=== PATIENT | female | born 1950 | race Caucasian/White ===

== ENCOUNTER → 2016-04-28 | Outpatient (CLI) | payer OTHER ==
[~2016-04-28] MED LIST: ACTOS30 MG PO; ALPRAZOLAM0.5 M3 PO; AMBIEN10 MG PO; ANTIBIOTIC O500 U/GM TP; ATENOLOL25 MG PO; BACTRIM DS 8001 TA1 PO; BENTYL10 MG PO; BIAXIN500 MG PO; BISOPROLOL FUMA1 TAB PO; BISOPROLOL PO; CALCIUM 500 + D1 TA1 PO; CALCIUM/VITAMIN1 TA8 PO; CITALOPRAM HYDR20 MG PO; CITALOPRAM20 MG PO; CLINDAMYCIN HC300 MG PO; CYCLOBENZAPRINE10 MG PO; DIFLUCAN100 MG PO; DIFLUCAN150 MG PO; DITROPAN XL5 MG PO; FENOFIBRATE MI134 MG PO; FENOFIBRATE134 MG PO; FLUCONAZOLE200 MG PO; GLIPIZIDE ER10 MG PO; GLIPIZIDE XL5 MG PO; GLIPIZIDE10 M1 PO; HYDROCODONE BIT1 T11 PO; INVOKANA100 M1 PO; IRON325 M1 PO; JANUVIA100 MG PO; KEFLEX500 MG PO; LANTUS SOLOS100 U/M1 SC; LANTUS100 U/ML SC; LEVAQUIN500 M2 PO; LEVOTHYROXINE0.05 MG PO; METOCLOPRAMIDE10 MG PO; MOTRIN800 MG PO; MYCOLOG-II 10001 CRE TP; NAPROXEN375 MG PO; NEURONTIN100 MG PO; NORCO 5-325 TA1 EACH PO; OXYBUTYNIN5 MG PO; OYSTER SHELL 51 EACH PO; PANTOPRAZOLE SO40 MG PO; PANTOPRAZOLE40 MG PO; PIOGLITAZONE HC30 MG PO; PREMARIN0.625 M1 PO; PREMARIN0.625 MG PO; PROTONIX40 MG PO; PT DOES NOT KNOW MED; Phenergan25 MG PO; SYNTHROID0.3 MG PO; SYNTHROID300 MCG PO; THEOPHYLLINE PO; THEOPHYLLINE400 MG PO; TRAMADOL HCL50 MG PO; ULTRAM50 MG PO; VENTOLIN H0.09 MG/AC INH; VICODIN 5/500 505 MG PO; VITAMIN D22000 UNIT PO; VITAMIN D2400 IU PO; VITAMIN D50000 I1 PO; VITAMIN D50000 UNIT PO; XANAX0.5 MG PO; ZIAC 2.5 MG-6.21 TAB PO; ZIAC 2.5 MG-6.25 MG PO; ZOLPIDEM TART10 MG PO; [UNRECOGNIZED DRUG - OTHER] PO
[2016-04-28 10:39] LABS: BILIRUBIN NEGATIVE (NEGATIVE); BLOOD NEGATIVE (NEGATIVE); CLARITY CLEAR (CLEAR); COLOR STRAW (YELLOW); GLUCOSE NEGATIVE (NEGATIVE); KETONE NEGATIVE (NEGATIVE); LEUKO ESTERASE NEGATIVE (NEGATIVE); NITRITE NEGATIVE (NEGATIVE); PROTEIN NEGATIVE (NEGATIVE); SPECIFIC GRAVITY <= 1.005 (1.005-1.030); UROBILINOGEN 0.2 E.U./dl (0.2-1.0)
[2016-04-28 10:47] LABS: BASO % 0.3 % (0.0-1.0); EOS # 0.1 10*3/uL (0.0-0.4); EOS % 1.7 % (1.0-4.0); HEMATOCRIT 37.3 % (37.0-47.0); HEMOGLOBIN 12.1 g/dl (12.0-16.0); LYMPH # 1.5 10*3/uL (1.3-4.4); LYMPH % 23.8 % (27.0-41.0); MEAN CELL VOLUME 92.8 fl (81.0-99.0); MEAN CORPUSCULAR HGB 30.1 pg (27.0-31.0); MEAN CORPUSCULAR HGB CONC 32.4 g/dl (33.0-37.0); MONO # 0.4 10*3/uL (0.1-1.0); MONO % 6.7 % (3.0-9.0); NEUT # 4.3 10*3/uL (2.3-7.9); NEUT % 67.2 % (47.0-73.0); PLATELET COUNT AUTOMATED 234 10*3/uL (130-400); RED BLOOD COUNT 4.02 10*6/uL (4.10-5.10); RED CELL DISTRI WIDTH 13.4 % (0-14.5); WHITE BLOOD COUNT 6.4 10*3/uL (4.8-10.8)
[2016-04-28 10:53] LABS: URINE TP/CRE RATIO 0.2 (<0.21)
[2016-04-28 11:02] LABS: ALBUMIN 3.3 gm/dl (3.1-4.5); PHOSPHOROUS 2.8 mg/dL (2.5-4.9); POTASSIUM 4.9 mmol/L (3.5-5.1)
== END | disposition home or self-care (01) ==
LOC: LAB 10:12
PROVIDERS: Internal Medicine Nephrology
DX: N18.3 Chronic kidney disease, stage 3 (moderate) (principal)

== ENCOUNTER → 2016-11-11 | Outpatient (CLI) | payer OTHER ==
[~2016-11-11] MED LIST changes: +ALPRAZOLAM1 M2 PO; +AMBIEN10 M1 PO; +FERROUS SULFAT324 M2 PO; +GABAPENTIN100 M2 PO; +HUMALOG100 U/ML SC; +LEVOTHYROXINE0.1 MG PO; +PRANDIN1 MG PO; +VITAMIN D50000 I3 PO; +[UNRECOGNIZED DRUG - OTHER] PO
== END | disposition home or self-care (01) ==
LOC: RAD 12:43
DX: M47.897 Other spondylosis, lumbosacral region (principal); M47.817 Spondylosis without myelopathy or radiculopathy, lumbosacral region; G95.89 Other specified diseases of spinal cord

== ENCOUNTER 2017-04-28 19:42 | Inpatient (IN) | payer OTHER ==
[~2017-04-28] VITALS: Ht 162.6 cm; Wt 77.6 kg
[2017-04-28 20:03] VITALS: BP 143/75
[2017-04-28 20:44] LABS: BASO % 0.3 % (0.0-1.0); EOS # 0.2 10*3/uL (0.0-0.4); EOS % 2.6 % (1.0-4.0); HEMATOCRIT 36.9 % (37.0-47.0); HEMOGLOBIN 12.4 g/dl (12.0-16.0); LYMPH # 1.3 10*3/uL (1.3-4.4); LYMPH % 20.7 % (27.0-41.0); MEAN CORPUSCULAR HGB 30.2 pg (27.0-31.0); MEAN CORPUSCULAR HGB CONC 33.6 g/dl (33.0-37.0); MEAN PLATELET VOLUME 10.4 fl (9.6-12.3); MONO # 0.3 10*3/uL (0.1-1.0); MONO % 4.4 % (3.0-9.0); NEUT # 4.4 10*3/uL (2.3-7.9); NEUT % 71.5 % (47.0-73.0); PLATELET COUNT AUTOMATED 237 10*3/uL (130-400); RED CELL DISTRI WIDTH 13.2 % (0-14.5); WHITE BLOOD COUNT 6.1 10*3/uL (4.8-10.8)
[2017-04-28 21:00] VITALS: BP 140/68
[2017-04-28 21:06] LABS: ALBUMIN 3.1 gm/dl (3.1-4.5); ALKALINE PHOSPHATASE 82 U/L (45-117); BUN 18 mg/dl (7-24); CHLORIDE 90 mmol/L (98-107); CREATININE 2.23 mg/dL (0.55-1.02); POTASSIUM 4.2 mmol/L (3.5-5.1); SGOT/AST 24 IU/L (3-35); SGPT/ALT 22 U/L (12-78); SODIUM 127 mmol/L (136-145); TOTAL PROTEIN 7.2 gm/dL (6.4-8.2)
[2017-04-28 21:10] LABS: TROPONIN I < 0.015 ng/ml (<0.045)
[2017-04-28 21:14] LABS: BILIRUBIN NEGATIVE (NEGATIVE); BLOOD 2+ (NEGATIVE); CLARITY SL CLOUDY (CLEAR); COLOR YELLOW (YELLOW); GLUCOSE 3+ (NEGATIVE); KETONE NEGATIVE (NEGATIVE); LEUKO ESTERASE 1+ (NEGATIVE); NITRITE POSITIVE (NEGATIVE); PH 5.5 (5.0-9.0); SPECIFIC GRAVITY <= 1.005 (1.005-1.030); UROBILINOGEN 0.2 E.U./dl (0.2-1.0)
[2017-04-28 21:21] LABS: BACTERIA 2+; EPITHELIAL CELLS 0-2; WBC TNTC wbc/hpf (0-5)
[2017-04-28 22:00] VITALS: BP 142/78
[2017-04-28 22:57] VITALS: BP 148/70
[2017-04-29] VITALS: BP 139/78
[2017-04-29 08:00] VITALS: BP 145/65
[2017-04-29 08:33] LABS: BASO % 0.5 % (0.0-1.0); EOS # 0.2 10*3/uL (0.0-0.4); EOS % 3.2 % (1.0-4.0); HEMATOCRIT 34.3 % (37.0-47.0); HEMOGLOBIN 11.9 g/dl (12.0-16.0); LYMPH # 1.9 10*3/uL (1.3-4.4); LYMPH % 33.3 % (27.0-41.0); MEAN CELL VOLUME 89.6 fl (81.0-99.0); MEAN CORPUSCULAR HGB 31.1 pg (27.0-31.0); MEAN CORPUSCULAR HGB CONC 34.7 g/dl (33.0-37.0); MEAN PLATELET VOLUME 10.3 fl (9.6-12.3); MONO # 0.5 10*3/uL (0.1-1.0); MONO % 8.6 % (3.0-9.0); NEUT # 3.1 10*3/uL (2.3-7.9); NEUT % 53.9 % (47.0-73.0); PLATELET COUNT AUTOMATED 212 10*3/uL (130-400); RED BLOOD COUNT 3.83 10*6/uL (4.10-5.10); RED CELL DISTRI WIDTH 13.1 % (0-14.5); WHITE BLOOD COUNT 5.7 10*3/uL (4.8-10.8)
[2017-04-29 09:06] LABS: ALBUMIN 2.7 gm/dl (3.1-4.5); CREATININE 1.55 mg/dL (0.55-1.02); FREE T4 0.45 ng/dl (0.76-1.46); PHOSPHOROUS 2.2 mg/dL (2.5-4.9); POTASSIUM 3.5 mmol/L (3.5-5.1); TOTAL PROTEIN 6.4 gm/dL (6.4-8.2)
[2017-04-29 09:42] LABS: VITAMIN D, 25-HYDROXY 21.3 ng/mL (30-100)
[2017-04-29] MEDS ORDERED: GLIPIZIDE5 MG PO (10:38)
[2017-04-29] MEDS ORDERED: ZOLPIDEM5 MG PO (10:42)
[2017-04-29] MEDS ORDERED: REXULTI2 MG PO (10:44)
[2017-04-29] MEDS ORDERED: SERTRALINE HYD100 MG PO (10:45)
[2017-04-29 12:00] VITALS: BP 118/51
[2017-04-29 16:00] VITALS: BP 116/51
[2017-04-29 20:00] VITALS: BP 131/65
[2017-04-30] VITALS: BP 127/49
[2017-04-30 07:11] LABS: BASO % 0.7 % (0.0-1.0); EOS # 0.2 10*3/uL (0.0-0.4); EOS % 3.5 % (1.0-4.0); HEMATOCRIT 36.9 % (37.0-47.0); HEMOGLOBIN 12.5 g/dl (12.0-16.0); LYMPH # 1.8 10*3/uL (1.3-4.4); LYMPH % 31.2 % (27.0-41.0); MEAN CELL VOLUME 92.3 fl (81.0-99.0); MEAN CORPUSCULAR HGB 31.3 pg (27.0-31.0); MEAN CORPUSCULAR HGB CONC 33.9 g/dl (33.0-37.0); MEAN PLATELET VOLUME 10.2 fl (9.6-12.3); MONO # 0.5 10*3/uL (0.1-1.0); MONO % 8.7 % (3.0-9.0); NEUT # 3.1 10*3/uL (2.3-7.9); NEUT % 55.4 % (47.0-73.0); PLATELET COUNT AUTOMATED 217 10*3/uL (130-400); RED CELL DISTRI WIDTH 13.4 % (0-14.5); WHITE BLOOD COUNT 5.6 10*3/uL (4.8-10.8)
[2017-04-30 07:44] LABS: ALBUMIN 2.5 gm/dl (3.1-4.5); CREATININE 1.61 mg/dL (0.55-1.02); PHOSPHOROUS 2.7 mg/dL (2.5-4.9); TOTAL PROTEIN 6.2 gm/dL (6.4-8.2)
[2017-04-30 08:00] VITALS: BP 132/60
[2017-04-30] MEDS ORDERED: PROVENTIL HFA6.7 GM INH (10:22)
[2017-04-30] MEDS ORDERED: SYNTHROID137 MCG PO (10:22)
[2017-04-30] MEDS ORDERED: LANTUS SOL100 UNIT/1 SQ (10:22)
== END 2017-04-30 12:22 | disposition home or self-care (01) | DRG 637 ==
LOC: ED 19:42 → EDHOLD 22:25 → 4E 23:10
PROVIDERS: Hospitalist; Internal Medicine; Student in an Organized Health Care Education/Training Program
DX: E11.65 Type 2 diabetes mellitus with hyperglycemia (principal); N17.0 Acute kidney failure with tubular necrosis; N18.4 Chronic kidney disease, stage 4 (severe); E87.2 Acidosis; N39.0 Urinary tract infection, site not specified; E87.1 Hypo-osmolality and hyponatremia; F33.9 Major depressive disorder, recurrent, unspecified; K52.9 Noninfective gastroenteritis and colitis, unspecified; E11.22 Type 2 diabetes mellitus with diabetic chronic kidney disease; E11.40 Type 2 diabetes mellitus with diabetic neuropathy, unspecified; F41.9 Anxiety disorder, unspecified; M19.90 Unspecified osteoarthritis, unspecified site; K21.9 Gastro-esophageal reflux disease without esophagitis; I12.9 Hypertensive chronic kidney disease with stage 1 through stage 4 chronic kidney disease, or unspecified chronic kidney disease; E03.9 Hypothyroidism, unspecified; E86.0 Dehydration; J41.8 Mixed simple and mucopurulent chronic bronchitis; Z66 Do not resuscitate; Z51.5 Encounter for palliative care; E78.2 Mixed hyperlipidemia; E55.9 Vitamin D deficiency, unspecified; E66.09 Other obesity due to excess calories; Z79.4 Long term (current) use of insulin; Z98.51 Tubal ligation status; Z90.710 Acquired absence of both cervix and uterus; Z87.891 Personal history of nicotine dependence; Z82.49 Family history of ischemic heart disease and other diseases of the circulatory system; Z79.899 Other long term (current) drug therapy; Z91.14 Patient's other noncompliance with medication regimen; Z68.29 Body mass index [BMI] 29.0-29.9, adult; Z83.3 Family history of diabetes mellitus; Z80.1 Family history of malignant neoplasm of trachea, bronchus and lung; Z84.89 Family history of other specified conditions; Z88.8 Allergy status to other drugs, medicaments and biological substances

== ENCOUNTER 2017-05-08 11:56 | Inpatient (IN) | payer OTHER ==
[~2017-05-08] VITALS: Ht 162.5 cm; Wt 82.3 kg
[2017-05-08] VITALS (7 sets, daily range): BP systolic 90–155; BP diastolic 46–89
[~2017-05-08 11:56] MED LIST changes: +GLIPIZIDE5 MG PO; +LANTUS SOL100 UNIT/1 SQ; +PROVENTIL HFA6.7 GM INH; +REXULTI2 MG PO; +SERTRALINE HYD100 MG PO; +SYNTHROID137 MCG PO; +ZOLPIDEM5 MG PO
[2017-05-08 12:28] LABS: BASO # 0.1 10*3/uL (0.0-0.1); BASO % 0.5 % (0.0-1.0); EOS # 0.1 10*3/uL (0.0-0.4); EOS % 1.2 % (1.0-4.0); HEMATOCRIT 41.3 % (37.0-47.0); HEMOGLOBIN 13.9 g/dl (12.0-16.0); LYMPH # 1.8 10*3/uL (1.3-4.4); LYMPH % 16.8 % (27.0-41.0); MEAN CELL VOLUME 91.8 fl (81.0-99.0); MEAN CORPUSCULAR HGB 30.9 pg (27.0-31.0); MEAN CORPUSCULAR HGB CONC 33.7 g/dl (33.0-37.0); MONO % 9.3 % (3.0-9.0); NEUT # 7.8 10*3/uL (2.3-7.9); NEUT % 71.7 % (47.0-73.0); PLATELET COUNT AUTOMATED 277 10*3/uL (130-400); RED CELL DISTRI WIDTH 13.8 % (0-14.5); WHITE BLOOD COUNT 10.8 10*3/uL (4.8-10.8)
[2017-05-08 12:49] LABS: ALBUMIN 3.8 gm/dl (3.1-4.5); CREATININE 1.79 mg/dL (0.55-1.02); POTASSIUM 2.8 mmol/L (3.5-5.1); TOTAL PROTEIN 8.1 gm/dL (6.4-8.2)
[2017-05-08 12:50] LABS: ACT PARTIAL THROMBO TIME 25.1 SECONDS (20.8-31.5)
[2017-05-08 18:16] LABS: BILIRUBIN NEGATIVE (NEGATIVE); BLOOD 1+ (NEGATIVE); CLARITY SL CLOUDY (CLEAR); COLOR YELLOW (YELLOW); GLUCOSE TRACE (NEGATIVE); KETONE NEGATIVE (NEGATIVE); LEUKO ESTERASE 3+ (NEGATIVE); NITRITE POSITIVE (NEGATIVE); PH 5.5 (5.0-9.0); UROBILINOGEN 0.2 E.U./dl (0.2-1.0)
[2017-05-08 18:24] LABS: BACTERIA 1+; WBC 51-100 wbc/hpf (0-5)
[2017-05-08 18:25] LABS: EPITHELIAL CELLS 16-20
[2017-05-09] VITALS: BP 121/50
[2017-05-09] MEDS ORDERED: BASAGLAR SQ (03:49)
[2017-05-09] MEDS ORDERED: GLIPIZIDE5 MG PO (03:50)
[2017-05-09] MEDS ORDERED: ZOLOFT100 MG PO (03:57)
[2017-05-09 05:58] LABS: ALBUMIN 2.8 gm/dl (3.1-4.5); CREATININE 1.64 mg/dL (0.55-1.02); PHOSPHOROUS 2.4 mg/dL (2.5-4.9); TOTAL PROTEIN 6.4 gm/dL (6.4-8.2)
[2017-05-09 06:18] LABS: POTASSIUM 4.7 mmol/L (3.5-5.1)
[2017-05-09 06:40] LABS: BASO % 0.4 % (0.0-1.0); EOS # 0.1 10*3/uL (0.0-0.4); EOS % 1.6 % (1.0-4.0); HEMATOCRIT 36.4 % (37.0-47.0); HEMOGLOBIN 12.2 g/dl (12.0-16.0); LYMPH # 2.2 10*3/uL (1.3-4.4); LYMPH % 31.8 % (27.0-41.0); MEAN CELL VOLUME 93.3 fl (81.0-99.0); MEAN CORPUSCULAR HGB 31.3 pg (27.0-31.0); MEAN CORPUSCULAR HGB CONC 33.5 g/dl (33.0-37.0); MEAN PLATELET VOLUME 10.6 fl (9.6-12.3); MONO # 0.6 10*3/uL (0.1-1.0); MONO % 8.7 % (3.0-9.0); NEUT # 3.9 10*3/uL (2.3-7.9); NEUT % 57.2 % (47.0-73.0); PLATELET COUNT AUTOMATED 220 10*3/uL (130-400); RED CELL DISTRI WIDTH 14.4 % (0-14.5); WHITE BLOOD COUNT 6.8 10*3/uL (4.8-10.8)
[2017-05-09 08:00] VITALS: BP 138/59
[2017-05-09 12:00] VITALS: BP 149/62
== END 2017-05-09 13:52 | disposition home health service (06) | DRG 639 ==
LOC: ED 11:56 → EDHOLD 13:03 → 4E 13:03
PROVIDERS: Emergency Medicine; Registered Nurse
DX: E11.649 Type 2 diabetes mellitus with hypoglycemia without coma (principal); N18.4 Chronic kidney disease, stage 4 (severe); E11.22 Type 2 diabetes mellitus with diabetic chronic kidney disease; E11.40 Type 2 diabetes mellitus with diabetic neuropathy, unspecified; F32.9 Major depressive disorder, single episode, unspecified; E87.6 Hypokalemia; I12.9 Hypertensive chronic kidney disease with stage 1 through stage 4 chronic kidney disease, or unspecified chronic kidney disease; M19.90 Unspecified osteoarthritis, unspecified site; J44.9 Chronic obstructive pulmonary disease, unspecified; K21.9 Gastro-esophageal reflux disease without esophagitis; F41.9 Anxiety disorder, unspecified; E03.9 Hypothyroidism, unspecified; E66.9 Obesity, unspecified; Z68.31 Body mass index [BMI] 31.0-31.9, adult; T38.3X5A Adverse effect of insulin and oral hypoglycemic [antidiabetic] drugs, initial encounter; Y92.89 Other specified places as the place of occurrence of the external cause; Z91.14 Patient's other noncompliance with medication regimen; Z88.6 Allergy status to analgesic agent; Z90.710 Acquired absence of both cervix and uterus; Z98.51 Tubal ligation status; Z87.891 Personal history of nicotine dependence; Z82.49 Family history of ischemic heart disease and other diseases of the circulatory system; Z80.1 Family history of malignant neoplasm of trachea, bronchus and lung; Z83.3 Family history of diabetes mellitus; Z80.3 Family history of malignant neoplasm of breast; Z79.899 Other long term (current) drug therapy

== ENCOUNTER 2017-06-11 16:25 | Emergency (ER) | payer OTHER ==
[~2017-06-11] VITALS: Ht 162.5 cm; Wt 81.6 kg
[~2017-06-11 16:25] MED LIST changes: +BASAGLAR SQ; +ZOLOFT100 MG PO
[2017-06-11 17:08] LABS: HEMOGLOBIN 13.1 g/dl (12.0-16.0); MEAN CELL VOLUME 92.4 fl (81.0-99.0); MEAN CORPUSCULAR HGB CONC 33.6 g/dl (33.0-37.0); MEAN PLATELET VOLUME 10.7 fl (9.6-12.3); PLATELET COUNT AUTOMATED 174 10*3/uL (130-400); RED BLOOD COUNT 4.22 10*6/uL (4.10-5.10); RED CELL DISTRI WIDTH 13.6 % (0-14.5); WHITE BLOOD COUNT 28.4 10*3/uL (4.8-10.8)
[2017-06-11 17:14] LABS: BILIRUBIN 1+ (NEGATIVE); BLOOD 3+ (NEGATIVE); CLARITY CLOUDY (CLEAR); COLOR YELLOW (YELLOW); GLUCOSE 3+ (NEGATIVE); KETONE NEGATIVE (NEGATIVE); LEUKO ESTERASE 2+ (NEGATIVE); NITRITE POSITIVE (NEGATIVE); PH 5.5 (5.0-9.0); UROBILINOGEN 0.2 E.U./dl (0.2-1.0)
[2017-06-11 17:24] LABS: ALBUMIN 3.1 gm/dl (3.1-4.5); CREATININE 2.87 mg/dL (0.55-1.02); POTASSIUM 4.5 mmol/L (3.5-5.1); TOTAL PROTEIN 7.3 gm/dL (6.4-8.2)
[2017-06-11 17:29] LABS: TOTAL CELLS COUNTED 100 #CELLS
[2017-06-11 17:31] LABS: PLATELET SUFFICIENCY NORMAL (NORMAL)
[2017-06-11 17:37] LABS: WBC TNTC wbc/hpf (0-5)
[2017-06-11 20:20] VITALS: BP 171/69
== END 2017-06-11 20:54 | disposition short-term general hospital (02) ==
LOC: ED 16:25
PROVIDERS: Physician Assistant
DX: A41.9 Sepsis, unspecified organism (principal); R65.20 Severe sepsis without septic shock; N12 Tubulo-interstitial nephritis, not specified as acute or chronic; R10.84 Generalized abdominal pain; Z87.891 Personal history of nicotine dependence; Z90.710 Acquired absence of both cervix and uterus; Z98.51 Tubal ligation status; Z98.890 Other specified postprocedural states; Z79.899 Other long term (current) drug therapy; Z88.6 Allergy status to analgesic agent

== ENCOUNTER 2017-07-27 17:07 | Inpatient (IN) | payer OTHER ==
[~2017-07-27] VITALS: Ht 162.5 cm; Wt 74.1 kg
[2017-07-27 17:17] VITALS: BP 128/60
[2017-07-27] MEDS ORDERED: LASIX40 MG PO (17:25)
[2017-07-27] MEDS ORDERED: VITAMIN D50000 UNIT PO (17:26)
[2017-07-27] MEDS ORDERED: NORVASC5 MG PO (17:26)
[2017-07-27] MEDS ORDERED: TYLENOL325 M1 PO (17:26)
[2017-07-27] MEDS ORDERED: Zofran4 MG SL (17:27)
[2017-07-27] MEDS ORDERED: K-PHOS NEUTRAL250 MG PO (17:27)
[2017-07-27] MEDS ORDERED: GLYCOLAX119 GM PO (17:28)
[2017-07-27] MEDS ORDERED: DUONEB 3 MG/3 ML3 M1 INH (17:29)
[2017-07-27] MEDS ORDERED: HUMALOG100 UNIT/1 SQ (17:30)
[2017-07-27 17:46] LABS: BASO % 0.1 % (0.0-1.0); HEMATOCRIT 35.3 % (37.0-47.0); HEMOGLOBIN 11.9 g/dl (12.0-16.0); LYMPH # 0.5 10*3/uL (1.3-4.4); LYMPH % 2.5 % (27.0-41.0); MEAN CELL VOLUME 86.9 fl (81.0-99.0); MEAN CORPUSCULAR HGB 29.3 pg (27.0-31.0); MEAN CORPUSCULAR HGB CONC 33.7 g/dl (33.0-37.0); MEAN PLATELET VOLUME 10.7 fl (9.6-12.3); MONO # 1.2 10*3/uL (0.1-1.0); MONO % 6.5 % (3.0-9.0); NEUT # 16.2 10*3/uL (2.3-7.9); NEUT % 89.9 % (47.0-73.0); PLATELET COUNT AUTOMATED 294 10*3/uL (130-400); RED BLOOD COUNT 4.06 10*6/uL (4.10-5.10); RED CELL DISTRI WIDTH 13.4 % (0-14.5)
[2017-07-27 18:01] LABS: ALBUMIN 2.7 gm/dl (3.1-4.5); CREATININE 1.8 mg/dL (0.55-1.02); POTASSIUM 4.6 mmol/L (3.5-5.1); TOTAL PROTEIN 8.1 gm/dL (6.4-8.2)
[2017-07-27 18:14] LABS: INTERNATIONAL NORM RATIO 1.1 (2.0-3.5)
[2017-07-27 18:20] LABS: TROPONIN I < 0.015 ng/ml (<0.045)
[2017-07-27 19:14] LABS: BILIRUBIN NEGATIVE (NEGATIVE); BLOOD 3+ (NEGATIVE); CLARITY CLOUDY (CLEAR); COLOR YELLOW (YELLOW); GLUCOSE 1+ (NEGATIVE); KETONE TRACE (NEGATIVE); LEUKO ESTERASE 2+ (NEGATIVE); NITRITE NEGATIVE (NEGATIVE); PH 5.5 (5.0-9.0); SPECIFIC GRAVITY 1.015 (1.005-1.030); UROBILINOGEN 0.2 E.U./dl (0.2-1.0)
[2017-07-27 19:24] LABS: WBC TNTC wbc/hpf (0-5)
[2017-07-27 21:16] VITALS: BP 152/58
[2017-07-28] VITALS: BP 146/57
[2017-07-28 00:20] LABS: CREATININE 1.64 mg/dL (0.55-1.02); POTASSIUM 4.4 mmol/L (3.5-5.1)
[2017-07-28 07:09] LABS: BASO % 0.2 % (0.0-1.0); EOS % 0.1 % (1.0-4.0); HEMATOCRIT 30.7 % (37.0-47.0); HEMOGLOBIN 10.1 g/dl (12.0-16.0); LYMPH % 5.8 % (27.0-41.0); MEAN CELL VOLUME 89.8 fl (81.0-99.0); MEAN CORPUSCULAR HGB 29.5 pg (27.0-31.0); MEAN CORPUSCULAR HGB CONC 32.9 g/dl (33.0-37.0); MEAN PLATELET VOLUME 10.8 fl (9.6-12.3); MONO # 1.2 10*3/uL (0.1-1.0); MONO % 6.9 % (3.0-9.0); NEUT # 14.8 10*3/uL (2.3-7.9); NEUT % 86.1 % (47.0-73.0); PLATELET COUNT AUTOMATED 243 10*3/uL (130-400); RED BLOOD COUNT 3.42 10*6/uL (4.10-5.10); RED CELL DISTRI WIDTH 13.6 % (0-14.5); WHITE BLOOD COUNT 17.2 10*3/uL (4.8-10.8)
[2017-07-28 07:41] LABS: CREATININE 1.48 mg/dL (0.55-1.02); POTASSIUM 4.3 mmol/L (3.5-5.1); TOTAL PROTEIN 6.6 gm/dL (6.4-8.2)
[2017-07-28 08:00] VITALS: BP 112/42
[2017-07-28 12:00] VITALS: BP 124/44
[2017-07-28 16:00] VITALS: BP 134/51
[2017-07-28 20:00] VITALS: BP 132/50
[2017-07-28] MEDS ORDERED: CEFTRIAXON2 GM/50 ML IV (21:42)
[2017-07-28] MEDS ORDERED: PHENERGAN25 MG/1 ML IJ (21:42)
[2017-07-28] MEDS ORDERED: MUCINEX ER600 MG PO (21:42)
== END 2017-07-28 23:35 | disposition short-term general hospital (02) | DRG 871 ==
LOC: ED 17:07 → 5E 20:17 → EDHOLD 20:17 → 5E 21:14
PROVIDERS: Internal Medicine Nephrology; Physician Assistant
DX: A41.9 Sepsis, unspecified organism (principal); E43 Unspecified severe protein-calorie malnutrition; E11.22 Type 2 diabetes mellitus with diabetic chronic kidney disease; N18.4 Chronic kidney disease, stage 4 (severe); N12 Tubulo-interstitial nephritis, not specified as acute or chronic; E87.1 Hypo-osmolality and hyponatremia; E11.42 Type 2 diabetes mellitus with diabetic polyneuropathy; E87.8 Other disorders of electrolyte and fluid balance, not elsewhere classified; E11.65 Type 2 diabetes mellitus with hyperglycemia; D64.9 Anemia, unspecified; D72.810 Lymphocytopenia; J44.9 Chronic obstructive pulmonary disease, unspecified; K21.9 Gastro-esophageal reflux disease without esophagitis; M19.90 Unspecified osteoarthritis, unspecified site; E03.9 Hypothyroidism, unspecified; F32.9 Major depressive disorder, single episode, unspecified; E66.09 Other obesity due to excess calories; F41.9 Anxiety disorder, unspecified; E78.5 Hyperlipidemia, unspecified; E55.9 Vitamin D deficiency, unspecified; I12.9 Hypertensive chronic kidney disease with stage 1 through stage 4 chronic kidney disease, or unspecified chronic kidney disease; E53.8 Deficiency of other specified B group vitamins; M54.42 Lumbago with sciatica, left side; Z96.0 Presence of urogenital implants; G89.29 Other chronic pain; Z79.899 Other long term (current) drug therapy; Z87.442 Personal history of urinary calculi; Z87.81 Personal history of (healed) traumatic fracture; Z98.51 Tubal ligation status; Z82.49 Family history of ischemic heart disease and other diseases of the circulatory system; Z85.118 Personal history of other malignant neoplasm of bronchus and lung; Z88.6 Allergy status to analgesic agent; Z68.34 Body mass index [BMI] 34.0-34.9, adult; Z90.710 Acquired absence of both cervix and uterus; Z87.891 Personal history of nicotine dependence; Z79.4 Long term (current) use of insulin; Z80.1 Family history of malignant neoplasm of trachea, bronchus and lung

== ENCOUNTER → 2017-10-17 | Outpatient (CLI) | payer OTHER ==
[~2017-10-17] MED LIST changes: +CEFTRIAXON2 GM/50 ML IV; +DUONEB 3 MG/3 ML3 M1 INH; +ELIQUIS5 M1 PO; +GLYCOLAX119 GM PO; +HUMALOG100 UNIT/1 SQ; +K-PHOS NEUTRAL250 MG PO; +LASIX40 MG PO; +LEXAPRO10 MG PO; +MEGACE 40400 MG/10 PO; +MUCINEX ER600 MG PO; +NORVASC5 MG PO; +PEPCID AC20 MG PO; +PHENERGAN25 MG/1 ML IJ; +PROTONIX IV40 MG IV; +QUESTRAN LIGHT4 GM PO; +SYNTHROID,LEVO75 MCG PO; +Synthroid,Lev100 MCG PO; +TYLENOL325 M1 PO; +URECHOLINE25 MG PO; +XANAX0.25 MG PO; +Zofran4 MG SL
== END | disposition home or self-care (01) ==
LOC: CT 02:00
DX: K57.30 Diverticulosis of large intestine without perforation or abscess without bleeding (principal); N13.30 Unspecified hydronephrosis; M43.25 Fusion of spine, thoracolumbar region; M46.26 Osteomyelitis of vertebra, lumbar region; A04.72 Enterocolitis due to Clostridium difficile, not specified as recurrent; Z96.0 Presence of urogenital implants

== ENCOUNTER 2017-12-22 09:57 | Inpatient (IN) | payer MEDICAID ==
[~2017-12-22] VITALS: Ht 162.5 cm; Wt 63.8 kg
[2017-12-22] VITALS (7 sets, daily range): BP systolic 114–161; BP diastolic 52–97
--- NOTE | ~2017-12-22 | EKG ---
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
--- NOTE | ~2017-12-22 | CON ---
[place], [place] REPORT OF CONSULTATION NAME: JESUS NORTH UNIT #: [id number] ROOM: 507 DOCTOR: MARY FERRARO MDEBDAVE BIRTHDATE: [birth year] DOS: 12/22/2017 HISTORY OF PRESENT ILLNESS: The patient has been admitted again with a chief complaint of having 3-4 bowel movements a day. The patient had a month of diarrhea by history. The patient has had C. diff positive in the past. The patient had UTI with Klebsiella pneumoniae in past and she has been readmitted for reassessment of complaints. Her H and H at this time was 10 and 29, white blood cell was 9. Lactic acid 12.7, INR 1.0. Comprehensive metabolic panel - glucose of 392. Again, GFR of 38. Serum potassium of 2.6. Potassium has been supplemented. Her total protein 6.2, albumin 2.3. All has been recognized. Alkaline phosphatase 118. Troponin within normal limits. Chest x-ray, no acute pathology. Troponin again was reassessed. PAST MEDICAL HISTORY: Peripheral neuropathy, diabetes mellitus, depression, COPD, anxiety, urethral stent. PAST SURGICAL HISTORY: Hysterectomy, urethral stent, bladder repair, tubal ligation, adenoidectomy, tonsillectomy. MEDICATIONS: List reviewed. ALLERGIES: IBUPROFEN. SOCIAL HISTORY: Passive smoker. Nonalcohol consumer. FAMILY HISTORY: Noncontributory. REVIEW OF SYSTEMS: HEENT: Denies double vision, blurred vision. RESPIRATORY: Denies acute shortness of breath. CARDIOVASCULAR: Denies chest pain. DIGESTIVE SYSTEM: Diarrhea cramp and loss of control of stool and history of C. diff. PHYSICAL EXAMINATION: HEENT: Head - normocephalic, nontraumatic. Eyes - pupils round, reactive. Diabetic eye was noticed. Conjunctivae pink. NECK: Supple, no thyromegaly, no cervical lymphadenopathy. CHEST: Symmetric anatomy, equal expansion. No wheeze, no rhonchi. HEART: Normal sinus rhythm, no gallop, no murmur. ABDOMEN: Soft. No hepato-organomegaly, no pulsatile mass. EXTREMITIES: No cyanosis, no pedal edema. NEUROLOGIC: Alert, oriented to time, place, person. Sensory, motor intact. Cranial nerves 2-12 intact. IMPRESSION AND PLAN: Chronic diarrhea for 1 month, most likely having to do with the clostridium difficile issues. We are going to do Clostridium difficile and stool cultures, particularly for Campylobacter jejuni as well and cryptosporidium. If negative, then we are going to treat her with a course of probiotic and Questran. Other adjunctive diagnoses as outlined above. Diabetes [place], [place] REPORT OF CONSULTATION NAME: JESUS NORTH UNIT #: [id number] ROOM: 507 DOCTOR: HELEN FERRARO MD BIRTHDATE: [birth year] is being managed. Medications reviewed. HELEN FERRARO MD CM:CONSTR:REPORT OF CONSULTATION 00 12/23/17 0546 interface
--- NOTE | ~2017-12-22 | O ---
[place], [place] OPERATIVE NOTE NAME: JESUS NORTH UNIT #: [id number] ROOM: 507 DOCTOR: JASMINE AVILESHELEN BIRTHDATE: [birth year] DOS: 12/25/2017 GASTROENDOSCOPIC REPORT HISTORY: This is a 67-year-old patient who has presented with a chief complaint of abdominal pain, epigastric distress, diarrhea, cramp, and undergoing investigation. The patient's consultation has been dictated a few days ago. PROCEDURE: Today's procedure part of investigation is panendoscopy plus biopsy and colonoscopy plus biopsy. PREMEDICATION: Propofol. SCOPE: Olympus forward-viewing gastroscope Q10 video. REPORT: After putting the patient in left lateral position and application of lubricant to the scope, the scope was introduced, thereafter under direct visualization advanced through the length of esophagus into gastric pouch. Gastritis seen. Duodenal bulb, second and third part within normal limits. Antrum biopsied. The patient extubated, tolerated the procedure well. IMPRESSION: Gastritis status post biopsy. PLAN AND DISCUSSION: Continuation with PPI. On the other hand, we are going to proceed with colonoscopy because of chronic diarrhea, negative for infectious causes. Meanwhile, the patient with anemia, unknown etiology. PROCEDURE 2: Today's procedure part of investigation is colonoscopy plus biopsy. PREMEDICATION: Propofol. SCOPE: Olympus forward-viewing colonoscope 10L video. REPORT: After putting the patient in left lateral position and application of lubricant to the rectal pouch and digital examination, the scope was introduced, thereafter under direct visualization advanced through the length of colon without difficulty. Base of the cecum explored, scope was gradually withdrawn. Mild erythema of the colon was noticed. Therefore, biopsies randomly from transverse colon were obtained. Mucosa appears to be very fragile. However, biopsy samples were obtained. Air was suctioned out. The patient was extubated, tolerated the procedure well. IMPRESSION: Nonspecific mild inflammation of the colon status post random biopsy ruling out infiltrating causes, i.e., lymph cell infiltrate, eosinophilic infiltrate, collagen deposits consistent with collagenous colitis, all have been documented. PLAN AND DISCUSSION: The patient is going to be given a diet, lactose free. Awaiting biopsies, no antibiotics to be used, and we will reassess as an [place], [place] OPERATIVE NOTE NAME: JESUS NORTH UNIT #: [id number] ROOM: 7 DOCTOR: JASMINE AVILES,HELEN BIRTHDATE: [birth year] outpatient. The patient is stable enough to be discharged and followed up as an outpatient. Thank you. HELEN FERRARO MD CM:OPRECORD:OPERATIVE NOTE [phone] HELEN FERRARO MD 12/25/171920 interface
--- NOTE | ~2017-12-22 | CON ---
[place], [place] REPORT OF CONSULTATION [id number] UN[facility] #: [id number] ROOM: 507 DOCTOR: BRIANNA ELIAS ED.D (CHAD) BIRTHDATE: [birth year] DOS: 12/25/2017 HISTORY OF PRESENT ILLNESS: This patient is a 67-year-old female referred by the hospitalist for depression. At the present time, this patient lives on the [address] at [facility]. She states she is and has 3 sons and 1 stepson. She is presently on SSI. Her family physician is Dr. Lisa and her medical history is pertinent for anxiety, vitamin B deficiency, C. diff, diabetes mellitus type 2, GERD, hypertension, depression, hypothyroidism, iron deficiency anemia, neuropathy, malnutrition. MEDICATIONS: Include Zofran, Megace, Xanax, Norvasc, Eliquis, Urecholine, Lexapro, Pepcid, Neurontin and Synthroid. SOCIAL HISTORY: She denies any drug use or abuse and states she quit smoking in the . She does drink alcoholic beverages on rare occasions. PHYSICAL EXAMINATION: This patient was awake, alert and oriented in all three spheres. She denies any suicidal ideation or plan, but admits to being depressed. She follows at [facility] and sees JUNE Rice and also has a nurse practitioner who prescribes her medications. She quit taking her medications several months ago when she started having diarrhea and she became more depressed. She agreed to restarting her medications as prescribed and will follow up with [facility] once she is discharged from the hospital. She states she is feeling better and wants to get her tests over with and go home. DIAGNOSES: 1. Major depressive disorder, recurrent, 2. Generalized anxiety disorder. RECOMMENDATIONS: In my opinion, this patient should continue at [facility] with nurse practitioner and with JUNE Rice. Thank you very much for this consult. BRIANNA ELIAS ED.D CM:CONSTR:REPORT OF CONSULTATION 1037 01/12/18 0720 interface
[2017-12-22 10:29] LABS: BASO % 0.3 % (0.0-1.0); EOS # 0.1 10*3/uL (0.0-0.4); EOS % 1.2 % (1.0-4.0); HEMATOCRIT 29.1 % (37.0-47.0); LYMPH # 0.8 10*3/uL (1.3-4.4); LYMPH % 8.7 % (27.0-41.0); MEAN CELL VOLUME 88.2 fl (81.0-99.0); MEAN CORPUSCULAR HGB 30.3 pg (27.0-31.0); MEAN CORPUSCULAR HGB CONC 34.4 g/dl (33.0-37.0); MEAN PLATELET VOLUME 9.6 fl (9.6-12.3); MONO # 0.8 10*3/uL (0.1-1.0); MONO % 8.6 % (3.0-9.0); NEUT # 7.5 10*3/uL (2.3-7.9); NEUT % 80.4 % (47.0-73.0); PLATELET COUNT AUTOMATED 351 10*3/uL (130-400); RED CELL DISTRI WIDTH 16.1 % (0-14.5); WHITE BLOOD COUNT 9.3 10*3/uL (4.8-10.8)
[2017-12-22 10:39] LABS: ACT PARTIAL THROMBO TIME 25.9 SECONDS (20.8-31.5)
[2017-12-22 10:50] LABS: ALBUMIN 2.3 gm/dl (3.1-4.5); ALKALINE PHOSPHATASE 118 U/L (45-117); BUN 14 mg/dl (7-24); CHLORIDE 96 mmol/L (98-107); CREATININE 1.65 mg/dL (0.55-1.02); LIPASE 45 U/L (73-393); POTASSIUM 2.6 mmol/L (3.5-5.1); SGPT/ALT 6 U/L (12-78); SODIUM 131 mmol/L (136-145); TOTAL PROTEIN 6.2 gm/dL (6.4-8.2)
[2017-12-22 10:53] LABS: SGOT/AST < 3 IU/L (3-35); TROPONIN I < 0.015 ng/ml (<0.045)
[2017-12-22 11:08] LABS: BILIRUBIN NEGATIVE (NEGATIVE); BLOOD 3+ (NEGATIVE); CLARITY CLOUDY (CLEAR); COLOR YELLOW (YELLOW); GLUCOSE 3+ (NEGATIVE); KETONE NEGATIVE (NEGATIVE); LEUKO ESTERASE 2+ (NEGATIVE); NITRITE POSITIVE (NEGATIVE); UROBILINOGEN 0.2 E.U./dl (0.2-1.0)
[2017-12-22 11:16] LABS: WBC TNTC wbc/hpf (0-5)
[2017-12-22 13:47] LABS: TROPONIN I < 0.015 ng/ml (<0.045)
[2017-12-22 13:50] LABS: FREE T4 0.47 ng/dl (0.76-1.46)
[2017-12-22] MEDS ORDERED: HUMALOG KW200 UNIT/1 SQ (14:21)
[2017-12-23] VITALS: BP 149/70
[2017-12-23 06:27] LABS: BASO % 0.4 % (0.0-1.0); EOS # 0.1 10*3/uL (0.0-0.4); EOS % 1.5 % (1.0-4.0); HEMATOCRIT 28.3 % (37.0-47.0); HEMOGLOBIN 9.5 g/dl (12.0-16.0); LYMPH # 1.4 10*3/uL (1.3-4.4); LYMPH % 16.6 % (27.0-41.0); MEAN CELL VOLUME 87.3 fl (81.0-99.0); MEAN CORPUSCULAR HGB 29.3 pg (27.0-31.0); MEAN CORPUSCULAR HGB CONC 33.6 g/dl (33.0-37.0); MEAN PLATELET VOLUME 9.9 fl (9.6-12.3); MONO # 0.9 10*3/uL (0.1-1.0); MONO % 10.9 % (3.0-9.0); NEUT # 5.9 10*3/uL (2.3-7.9); NEUT % 69.9 % (47.0-73.0); PLATELET COUNT AUTOMATED 349 10*3/uL (130-400); RED BLOOD COUNT 3.24 10*6/uL (4.10-5.10); RED CELL DISTRI WIDTH 16.1 % (0-14.5); WHITE BLOOD COUNT 8.4 10*3/uL (4.8-10.8)
[2017-12-23 06:54] LABS: ALBUMIN 1.9 gm/dl (3.1-4.5); BUN 10 mg/dl (7-24); CHLORIDE 105 mmol/L (98-107); POTASSIUM 2.7 mmol/L (3.5-5.1); SGOT/AST 4 IU/L (3-35); SODIUM 136 mmol/L (136-145)
[2017-12-23 07:05] LABS: ALKALINE PHOSPHATASE 102 U/L (45-117); CREATININE 1.32 mg/dL (0.55-1.02); PHOSPHOROUS 1.3 mg/dL (2.5-4.9); TOTAL PROTEIN 5.2 gm/dL (6.4-8.2)
[2017-12-23 07:08] LABS: SGPT/ALT < 6 U/L (12-78)
[2017-12-23 08:00] VITALS: BP 159/79
[2017-12-23 12:00] VITALS: BP 149/67
[2017-12-23 14:00] VITALS: BP 149/59
[2017-12-23 20:00] VITALS: BP 134/57
[2017-12-24] VITALS: BP 126/42
[2017-12-24 06:17] LABS: BASO % 0.5 % (0.0-1.0); EOS # 0.2 10*3/uL (0.0-0.4); EOS % 3.1 % (1.0-4.0); HEMATOCRIT 31.6 % (37.0-47.0); HEMOGLOBIN 10.5 g/dl (12.0-16.0); LYMPH # 1.5 10*3/uL (1.3-4.4); LYMPH % 23.8 % (27.0-41.0); MEAN CELL VOLUME 88.5 fl (81.0-99.0); MEAN CORPUSCULAR HGB 29.4 pg (27.0-31.0); MEAN CORPUSCULAR HGB CONC 33.2 g/dl (33.0-37.0); MEAN PLATELET VOLUME 9.7 fl (9.6-12.3); MONO # 0.9 10*3/uL (0.1-1.0); MONO % 13.6 % (3.0-9.0); NEUT # 3.8 10*3/uL (2.3-7.9); NEUT % 58.2 % (47.0-73.0); PLATELET COUNT AUTOMATED 356 10*3/uL (130-400); RED BLOOD COUNT 3.57 10*6/uL (4.10-5.10); RED CELL DISTRI WIDTH 16.5 % (0-14.5); WHITE BLOOD COUNT 6.5 10*3/uL (4.8-10.8)
[2017-12-24 06:43] LABS: CREATININE 1.34 mg/dL (0.55-1.02)
[2017-12-24 08:00] VITALS: BP 116/52
[2017-12-24 12:00] VITALS: BP 153/67
[2017-12-24 16:00] VITALS: BP 110/68
[2017-12-24 20:00] VITALS: BP 112/66
[2017-12-25] VITALS (8 sets, daily range): BP systolic 119–173; BP diastolic 50–65
[2017-12-25 07:01] LABS: BASO % 0.8 % (0.0-1.0); EOS # 0.3 10*3/uL (0.0-0.4); EOS % 5.1 % (1.0-4.0); HEMATOCRIT 31.3 % (37.0-47.0); HEMOGLOBIN 10.5 g/dl (12.0-16.0); LYMPH # 1.5 10*3/uL (1.3-4.4); LYMPH % 29.3 % (27.0-41.0); MEAN CELL VOLUME 88.2 fl (81.0-99.0); MEAN CORPUSCULAR HGB 29.6 pg (27.0-31.0); MEAN CORPUSCULAR HGB CONC 33.5 g/dl (33.0-37.0); MEAN PLATELET VOLUME 9.7 fl (9.6-12.3); MONO # 0.6 10*3/uL (0.1-1.0); NEUT # 2.7 10*3/uL (2.3-7.9); NEUT % 52.2 % (47.0-73.0); PLATELET COUNT AUTOMATED 398 10*3/uL (130-400); RED BLOOD COUNT 3.55 10*6/uL (4.10-5.10); RED CELL DISTRI WIDTH 16.5 % (0-14.5); WHITE BLOOD COUNT 5.1 10*3/uL (4.8-10.8)
[2017-12-25 07:06] LABS: CREATININE 1.45 mg/dL (0.55-1.02); POTASSIUM 3.1 mmol/L (3.5-5.1)
[2017-12-26] VITALS: BP 133/58
[2017-12-26 06:10] LABS: BASO % 0.5 % (0.0-1.0); EOS # 0.3 10*3/uL (0.0-0.4); EOS % 5.1 % (1.0-4.0); HEMATOCRIT 31.8 % (37.0-47.0); HEMOGLOBIN 10.4 g/dl (12.0-16.0); LYMPH # 1.9 10*3/uL (1.3-4.4); LYMPH % 29.2 % (27.0-41.0); MEAN CELL VOLUME 89.6 fl (81.0-99.0); MEAN CORPUSCULAR HGB 29.3 pg (27.0-31.0); MEAN CORPUSCULAR HGB CONC 32.7 g/dl (33.0-37.0); MEAN PLATELET VOLUME 9.5 fl (9.6-12.3); MONO # 0.7 10*3/uL (0.1-1.0); NEUT # 3.6 10*3/uL (2.3-7.9); NEUT % 54.6 % (47.0-73.0); PLATELET COUNT AUTOMATED 392 10*3/uL (130-400); RED BLOOD COUNT 3.55 10*6/uL (4.10-5.10); RED CELL DISTRI WIDTH 16.8 % (0-14.5); WHITE BLOOD COUNT 6.5 10*3/uL (4.8-10.8)
[2017-12-26 06:30] LABS: CREATININE 1.47 mg/dL (0.55-1.02); POTASSIUM 3.4 mmol/L (3.5-5.1)
[2017-12-26 08:00] VITALS: BP 136/59
[2017-12-26 12:00] VITALS: BP 158/61
[2017-12-26] MEDS ORDERED: ZOFRAN ODT4 MG SL (12:02)
[2017-12-26] MEDS ORDERED: PROTONIX40 MG PO (12:02)
== END 2017-12-26 13:51 | disposition home or self-care (01) | DRG 689 ==
LOC: ED 09:57 → EDHOLD 11:39 → 5E 11:39
PROVIDERS: Family Medicine; Internal Medicine; Nurse Practitioner Family
PROC: 0DB68ZX Excision of Stomach, Via Natural or Artificial Opening Endoscopic, Diagnostic (ICD-10-PCS; principal; 2017-12-25)
PROC: 0DBL8ZX Excision of Transverse Colon, Via Natural or Artificial Opening Endoscopic, Diagnostic (ICD-10-PCS; 2017-12-25)
DX: N30.01 Acute cystitis with hematuria (principal); N17.0 Acute kidney failure with tubular necrosis; E43 Unspecified severe protein-calorie malnutrition; E87.1 Hypo-osmolality and hyponatremia; E87.2 Acidosis; F33.9 Major depressive disorder, recurrent, unspecified; K52.831 Collagenous colitis; Z87.442 Personal history of urinary calculi; E87.6 Hypokalemia; B96.1 Klebsiella pneumoniae [K. pneumoniae] as the cause of diseases classified elsewhere; K29.50 Unspecified chronic gastritis without bleeding; E83.39 Other disorders of phosphorus metabolism; F41.1 Generalized anxiety disorder; D64.9 Anemia, unspecified; R74.8 Abnormal levels of other serum enzymes; R80.9 Proteinuria, unspecified; R81 Glycosuria; J44.9 Chronic obstructive pulmonary disease, unspecified; I10 Essential (primary) hypertension; M19.90 Unspecified osteoarthritis, unspecified site; K21.9 Gastro-esophageal reflux disease without esophagitis; E03.9 Hypothyroidism, unspecified; E78.2 Mixed hyperlipidemia; E11.42 Type 2 diabetes mellitus with diabetic polyneuropathy; E11.65 Type 2 diabetes mellitus with hyperglycemia; M54.5 Low back pain; G89.29 Other chronic pain; E53.8 Deficiency of other specified B group vitamins; Z87.440 Personal history of urinary (tract) infections; Z87.01 Personal history of pneumonia (recurrent); Z90.710 Acquired absence of both cervix and uterus; Z98.51 Tubal ligation status; Z79.4 Long term (current) use of insulin; Z88.6 Allergy status to analgesic agent; Z79.899 Other long term (current) drug therapy; Z80.1 Family history of malignant neoplasm of trachea, bronchus and lung; Z80.3 Family history of malignant neoplasm of breast; Z82.49 Family history of ischemic heart disease and other diseases of the circulatory system; Z83.3 Family history of diabetes mellitus; N18.3 Chronic kidney disease, stage 3 (moderate)

== ENCOUNTER → 2018-04-23 | Outpatient (CLI) | payer MEDICAID ==
[~2018-04-23] MED LIST changes: +ALBUTEROL0.63 MG/3 INH; +HUMALOG KW200 UNIT/1 SQ; +IMDUR SA30 MG PO; +LEVOTHYROXINE125 MCG PO; +LIPITOR20 MG PO; +METOPROLOL SUCC25 M2 PO; +ZOFRAN ODT4 MG SL; +ZOFRAN4 MG PO; +ZOLPIDEM TART5 MG PO
== END | disposition home or self-care (01) ==
LOC: CT 12:53
DX: N13.30 Unspecified hydronephrosis (principal); N26.1 Atrophy of kidney (terminal)

== ENCOUNTER → 2018-05-25 | Outpatient (CLI) | payer MEDICAID ==
[~2018-05-25] MED LIST changes: +APRESOLINE10 MG PO; +CARVEDILOL3.125 MG PO; +COREG12.5 M1 PO; +DOXYCYCLINE100 MG PO; +ELIQUIS2.5 M1 PO; +FUROSEMIDE20 M1 PO; +HYDRALAZINE10 MG PO; +HYDROCODONE-AC1 EAC1 PO; +OXYBUTYNIN CHLOR5 MG PO; +POTASSIUM CHLO10 ME4 PO; +PREDNISONE10 MG PO; +PREDNISONE50 MG PO; +Percocet 325 MG1 TAB PO
== END | disposition home or self-care (01) ==
LOC: MRI 08:52
DX: M48.061 Spinal stenosis, lumbar region without neurogenic claudication (principal)

== ENCOUNTER 2018-07-20 11:27 | Inpatient (IN) | payer MEDICAID ==
[~2018-07-20] VITALS: Ht 162.5 cm; Wt 74.9 kg
[2018-07-20] VITALS (11 sets, daily range): BP systolic 127–169; BP diastolic 48–91
--- NOTE | ~2018-07-20 | PR ---
[place], [place] PROGRESS NOTE NAME: JESUS NORTH UNIT #: [id number] ROOM: 523 DOCTOR: CAROL LALA MD BIRTHDATE: [birth year] DOS: 07/24/2018 PULMONARY PROGRESS NOTE SUBJECTIVE: The patient noted comfortable at this time, resting in the bed, has not been reported any acute respiratory complaints, stating shortness of breath has been improving from previous. There were no symptoms of fever or chills or hemoptysis reported by the patient. OBJECTIVE: VITAL SIGNS: Normal temperature, respiratory rate 20, heart rate 80, blood pressure 122/72. Pulse oxygen saturation on 4 liters nasal cannula 97% saturation. HEENT: Examination shows head was atraumatic. Eyes nonicterus. NECK: Supple. CARDIOVASCULAR: S1, S2 is audible. LUNGS: There was no wheezing or crackles. Breaths are noted diminished in the lower portion of the lungs. ABDOMEN: Soft, nontender, bowel sounds present. LABORATORY DATA: BMP today: BUN 87, creatinine is 3.18. Antinuclear antibody, which were done for the patient on 07/21/2018 as well as workup for the vasculitis, hepatitis profile, C3 and C4 were all noted as negative. Urine eosinophils of the patient noted elevated at 3%. IMPRESSION: The patient with acute interstitial nephritis was noted with fluid overload for this patient with pleural fluid and acute exacerbation of chronic obstructive pulmonary disease. PLAN OF THERAPY: The patient is receiving Solu-Medrol 40 mg daily, could be switched to the oral prednisone for the patient possibly tomorrow. PLAN OF TREATMENT: Continue followup and management of the patient as done by the Nephrology services for the kidney functions management. Other therapy, plan of management. Additional treatment changes will be done based on progression of the illness. [place], [place] PROGRESS NOTE NAME: JESUS NORTH UNIT #: [id number] ROOM: 523 DOCTOR: CAROL LALA MD BIRTHDATE: [birth year] CAROL CABRALES MD CM:PNTRANS [id number] CAROL GAMBLE MD 07/25/18 0130 interface
--- NOTE | ~2018-07-20 | PR ---
[place], [place] PROGRESS NOTE NAME: JESUS NORTH UNIT #: [id number] ROOM: 523 DOCTOR: CAROL LALA MD BIRTHDATE: [birth year] DOS: 07/22/2018 SUBJECTIVE: The patient was noted comfortable at this time, has used the BiPAP last night, using oxygen supplementation this morning. Denies symptoms of fever or chills or any hemoptysis. Denies symptoms of nausea or vomiting. The patient denies symptoms of headache or diplopia. General weakness and fatigue were noted, which was noted decreased from previous 24 hours. She denies symptoms of abdominal pain, nausea, vomiting or hematuria. Remaining systems were reviewed. They were noted all negative. OBJECTIVE: VITAL SIGNS: For the patient which were recorded shows the temperature was noted as normal. The respiratory rate was recorded as 16, heart rate of 98, blood pressure 124/70. The pulse oxygen saturation on 4 liters nasal cannula 93% saturation. HEENT: No acute change. NECK: Supple. CARDIOVASCULAR: S1, S2 audible. LUNGS: Noted with occasional crackles. There was no wheezing. ABDOMEN: Soft, nontender. Bowel sounds present. EXTREMITIES: Without any acute edema. MUSCULOSKELETAL: Noted without any acute deformities. CENTRAL NERVOUS SYSTEM: Cranial nerves 2-12 intact. IMPRESSION: 1. The patient with acute respiratory failure with metabolic acidosis. 2. Acute congestive heart failure, fluid overload. 3. Acute kidney injury with a recent obstructive uropathy with a left ureteral stent placement. 4. Acute exacerbation of chronic obstructive pulmonary disease as well. 5. Electrolyte imbalance including hyperkalemia. PLAN OF MANAGEMENT: At the present time, the antibiotic has been discontinued. Monitor for any acute sepsis and resuming antibiotics accordingly. Also, decrease Solu-Medrol 40 mg daily. Continue use of the BiPAP setting of 21/11 at the present time and titrate oxygen supplementation at that time. Any additional treatment changes will be necessary will be done with progression of the illness accordingly. Usual care. [place], [place] PROGRESS NOTE NAME: JESUS NORTH UNIT #: [id number] ROOM: 523 DOCTOR: CAROL LALA MD BIRTHDATE: [birth year] CAROL CABRALES MD CM:PNTRANS [phone] CAROL GAMBLE MD 07/22/18 1620 interface
--- NOTE | ~2018-07-20 | PR ---
[place], [place] PROGRESS NOTE NAME: JESUS NORTH [facility] #: [id number] UNIT #: [id number] ROOM: 523 DOCTOR: SAMRA GAMBLE MD,CAROL BIRTHDATE: [birth year] DOS: 07/25/2018 PULMONARY PROGRESS NOTE SUBJECTIVE: She has been comfortably resting, stating no acute symptoms of coughing, chest pain, shortness of breath or abdominal pain. Denies any pain of the lower extremities. She has been assessed by Cardiology services and has an echocardiogram completed on 07/24/2018. The results of the patient were reviewed with patient as stated with left ventricular ejection fraction of 35%. PHYSICAL EXAMINATION: GENERAL: This morning, the patient comfortably resting, sitting on the bed without any distress. VITAL SIGNS: Normal temperature, respiratory rate 20, heart rate 86, blood pressure 126/64. Intake of 1100, the output was 2400 mL, negative fluid balance 1277 mL approximately. The pulse ox saturation on 2 liters nasal cannula was 97% saturation. HEENT: Head was atraumatic. Eyes nonicterus. NECK: Supple. CARDIOVASCULAR: S1, S2 audible. LUNGS: Without any wheeze or crackle at the present time. ABDOMEN: Soft, nontender. Bowel sounds present. EXTREMITIES: No acute change. IMPRESSION: Resolving acute congestive heart failure noted with systolic dysfunction as well as the acute exacerbation gradually and progressively. PLAN OF MANAGEMENT: Continue to maximize the cardiac management. Continue bronchodilators, oxygen supplementation to be continued. Solu-Medrol dose will be decreased to 20 mg daily for the next 3 days and then it will be discontinued. Discharge planning [facility] upon acceptance and authorization by the insurance. CAROL CABRALES MD CM:PNTRANS [id number] CAROL GAMBLE MD 08/03/18 0852 interface
--- NOTE | ~2018-07-20 | EKG ---
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 Prolonged NV interval Probable left atrial enlargement Left bundle branch block Compared to ECG 06/21/2018 11:51:23 First degree AV block now present Left bundle-branch block now present Short NV interval no longer present Intraventricular conduction delay no longer present Left ventricular hypertrophy no longer present Early repolarization no longer present ST (T wave) deviation no longer present Prolonged QT interval no longer present Electronically Signed On 07-23-2018 9:59:51 PDT by Wilfrido Lisa MD CM:EKGRPT:ELECTROCARDIOGRAM REPORT [id number] AICHA ARIAS DRAFT REPORT AICHA DELGADO MD
--- NOTE | ~2018-07-20 | EKG ---
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1950 Requested By: AICHA DELGADO Order Number: [id number] Reading MD: Wilfrido Lisa MD Measurements Intervals [place] Rate: 87 P: 43 AR: 240 QRS: -33 QRSD: 144 T: 83 QT: 398 QTc: 479 Interpretive Statements Sinus rhythm Prolonged AR interval Left bundle branch block Compared to ECG 06/21/2018 11:51:23 First degree AV block now present Left bundle-branch block now present Short AR interval no longer present Intraventricular conduction delay no longer present Left ventricular hypertrophy no longer present Early repolarization no longer present ST (T wave) deviation no longer present Prolonged QT interval no longer present Electronically Signed On 07-23-2018 10:00:36 PDT by Wilfrido Lisa MD CM:EKGRPT:ELECTROCARDIOGRAM REPORT [id number] AICHA DELGADO MD EPIPHANY DRAFT REPORT AICHA DELGADO MD
--- NOTE | ~2018-07-20 | CON ---
[place], [place] REPORT OF CONSULTATION NAME: [facility] #: [id number] UNIT #: [id number] ROOM: 523 DOCTOR: CAROL LALA MD BIRTHDATE: [birth year] DOS: 07/21/2018 PULMONARY CONSULTATION, EVALUATION AND MANAGEMENT REASON FOR CONSULTATION: Assess the patient's symptoms of shortness of breath and other pulmonary problems. HISTORY OF PRESENT ILLNESS: The patient is a 67-year-old white female patient who presented to the Emergency Room of [facility]. The patient has been developing increased symptoms of shortness gradually and progressively. The patient's symptoms have been present for the past 6-7 days. The symptoms were noted significantly worsened. She has been admitted to the hospital initially in 06/2018 with kidney problem requiring a transfer to [facility], assessed and managed by Dr. Jade with a stent placed for medical management of hydronephrosis. The patient was complaining of some symptoms of coughing and chest congestion as well. Denies symptoms of hemoptysis. Denies symptoms of fever or chills with the current symptoms. REVIEW OF SYSTEMS: CONSTITUTIONAL SYMPTOMS: Fatigue and tiredness reported, without any symptoms of fever or chills. EYES: Denies any burning, redness, or tenderness. EARS, NOSE AND THROAT SYMPTOMS: Denies sore throat, hoarseness, otalgia, or postnasal drainage. CARDIOVASCULAR SYSTEM: Denies anginal pain, but noted edema of the lower extremities which is progressive. MUSCULOSKELETAL SYMPTOMS: Denies acute joint pain, redness or tenderness. GENITOURINARY SYMPTOMS: Denies dysuria, suprapubic pain, or hematuria. GASTROINTESTINAL SYMPTOMS: Denies dysphagia, nausea, vomiting, diarrhea, abdominal pain, hematemesis, melena, or hematochezia. SKIN: No lesions or rashes. Remaining systems were reviewed with the patient, they were noted all negative. PAST MEDICAL HISTORY: Reported with multiple medical problems, includin. COPD. 2. Type 2 diabetes mellitus. 3. Gastroesophageal reflux. 4. Hydronephrosis of kidney requiring stent placement. 5. Hyperlipidemia. 6. Hypertension. 7. Hypothyroidism. 8. Family history of lung cancer. 9. Vitamin D deficiency. PAST SURGICAL HISTORY: 1. Tubal ligation. 2. T and A. 3. Cystocele repair. 4. Bladder surgery. 5. Left ureteral stent insertion for the patient's hydronephrosis management. [place], [place] REPORT OF CONSULTATION NAME: JESUS NORTH UNIT #: [id number] ROOM: 523 DOCTOR: CAROL LALA MD BIRTHDATE: [birth year] 6. Complete hysterectomy. SOCIAL HISTORY: The patient lives at home. She denies any history of alcohol or illicit drug use. She has been known with tobacco use about a pack or less of cigarettes per day that was discontinued in 1979 or later. Denied history of illicit drug use. FAMILY HISTORY: Father with complications related to lung cancer. Mother at 60 years old from unknown medical illnesses. MEDICATIONS: On admission were reported as use of albuterol sulfate nebulizer, Proventil HFA, Xanax, Norvasc, Eliquis, atorvastatin, Urecholine, famotidine, gabapentin, sliding scale insulin coverage, Imdur, levothyroxine, metoprolol, sertraline, and Ambien. CURRENT MEDICATIONS: Which have been administered for this patient on this hospitalization were noted as use of Coreg, Solu-Medrol intravenously, DuoNeb, IV Lasix 40 mg b.i.d., Levaquin, vancomycin, IV Zosyn. DRUG ALLERGIES: NOTED ALLERGY TO IBUPROFEN. PHYSICAL EXAMINATION: GENERAL: This is a 67-year-old female who is currently noted awake and alert, without any acute distress, using oxygen supplementation nasal cannula, used the BiPAP previously. Height recorded by the nursing staff on admission as 5 feet 4 inches, weight 172 pounds, BMI 29.5. VITAL SIGNS: Normal temperature, respiratory rate of 24-18, heart rate ranging between 84-69, blood pressure 129/61-127/48. The pulse oxygen saturation recorded as 98% on 3 liters nasal canula; with BiPAP previously on 40% noted as 96% saturation; on 4 liters nasal cannula on admission was 86% of oxygen recorded. HEENT: Mild obesity. Head is atraumatic. Eyes nonicterus. NECK: Supple. CARDIOVASCULAR: S1 and S2 audible. LUNGS: Crackles of the lungs were noted essentially bilaterally. ABDOMEN: Soft, nontender. EXTREMITIES: 1+ pitting edema. MUSCULOSKELETAL: Without acute deformity. SKIN: No lesions or rashes. CENTRAL NERVOUS SYSTEM: Cranial nerves 2 through 12 intact. LABORATORY DATA: CBC from yesterday - WBC count normal, hemoglobin 9.9, platelet count normal. PT and PTT from yesterday - PT/INR 1.2, PTT normal. CMP that was done yesterday - BUN 70, creatinine 4.1, glucose 116, potassium 5.4. CBC this morning repeated - WBC count 3.1, hemoglobin 10.2, platelet count 190,000. BMP this morning - BUN 68, creatinine 3.96, glucose 137, potassium 5.7. Urine culture - preliminarily no bacterial growth. Arterial blood gases which were done yesterday prior to ordering the BiPAP - pH is 7.30, pCO2 of 38, pO2 of 31; venous blood gas. Second arterial blood gas on 07/20/18 liters of oxygen - pH is 7.32, pCO2 of 34, pO2 of 56. Arterial blood gas another one [place], [place] REPORT OF CONSULTATION NAME: JESUS NORTH UNIT #: [id number] ROOM: 523 DOCTOR: SAMRA GAMBLE MD,[facility] BIRTHDATE: [birth year] repeated on 50% oxygen - pH is 7.31, pCO2 of 34, pO2 of 59 at that time. DIAGNOSTIC DATA: Chest x-ray 1 view, which was done yesterday was reviewed and was noted without any consolidation area, finding of congestive heart failure was considered with bilateral pleural effusions. CT scan of chest that was done on 07/20/2018 was also reviewed independently for the thoracic portion, shows evidence of bilateral inljl-tr-ospdegeq pleural effusions noted. Area of compression atelectasis was also noted. There were no other additional infiltration was noted. Fluid was tracking in the right minor fissure as well as in the left minor fissure. The interpretation of the abdominal pelvic CT scan of the portion noted moderate free fluid in the pelvic area. There were no other abnormalities reported, including hydronephrosis of the kidneys. IMPRESSION: The patient who has been currently admitted to the hospital noted with: 1. Severe acute respiratory failure with metabolic acidosis and severe hypoxemia. 2. The patient with congestive heart failure, fluid overload, secondary to acute kidney injury or congestive heart failure combination would be considered. 3. Acute chronic kidney injury with obstructive uropathy. 4. The patient with rule out pneumonia as well at least with this presentation assessment less likely, compression atelectasis noted most likely cause for the patient's current infiltration/atelectasis of the lower lungs secondary to that. 5. The patient with a history of hydronephrosis of the left kidney with kidney stent insertion in 06/2018. 6. Mild hyperkalemia, related to acute kidney injury. PLAN OF MANAGEMENT: Repeat arterial blood gases and use of BiPAP will be continued to stabilize her respiratory status. Titrate oxygen supplementation to maintain pulse oxygen saturation at 92% or greater. Soon after all the culture results become available including urine, blood and other, deescalate the antibiotics with keeping only Levaquin, adjust to kidney functions, and discontinue other antibiotics completely. Other therapy plan of management. Additional adjustments in BiPAP settings will be done for management of current hypoxemia based on the new arterial blood gases, which were ordered. Other therapy plan of management. Additional treatment changes will be ordered accordingly. Usual care. Bronchodilators to help mobilize secretions. Ordered the sputum culture as well. DVT prophylaxis. Thank you for allowing me to participate in the care of this patient. [place], [place] REPORT OF CONSULTATION NAME: JESUS NORTH UNIT #: [id number] ROOM: 523 DOCTOR: CAROL LALA MD BIRTHDATE: [birth year] CAROL CABRALES MD CM:CONSTR:REPORT OF CONSULTATION 1643 08/03/18 0846 interface
--- NOTE | ~2018-07-20 | PR ---
[place], [place] PROGRESS NOTE NAME: JESUS NORTH UNIT #: [id number] ROOM: 523 DOCTOR: CAROL LALA MD BIRTHDATE: [birth year] DOS: 07/23/2018 PULMONARY PROGRESS NOTE SUBJECTIVE: She has been noted comfortable at this time. Use of BiPAP earlier, using oxygen supplementation this morning. Denies symptoms of chest pain, fever or chills. The patient denies symptoms of abdominal pain. She does not have any symptoms of hemoptysis. OBJECTIVE: VITAL SIGNS: Normal temperature, respiratory rate 16, heart rate 90, blood pressure of 132/65 at midnight was recorded. The pulse oxygen saturation on 4 liters nasal cannula 94-97% saturation. The BiPAP was 97% saturation. HEENT: Head was atraumatic. Eyes nonicterus. NECK: Supple. CARDIOVASCULAR: S1, S2 audible. LUNGS: The patient was noted with decreased breath sounds in the lower portion of the lungs bilaterally. ABDOMEN: Soft, nontender. EXTREMITIES: The patient without any acute visible edema. LABORATORY DATA: BMP this morning, BUN 75, creatinine 3.43. Glucose 155. Vancomycin trough level was 9.5. IMPRESSION: 1. The patient with acute respiratory failure with metabolic alkalosis, acute kidney injury with congestive heart failure and fluid overload. 2. Acute exacerbation of chronic obstructive pulmonary disease. 3. From the pulmonary standpoint, the patient remains stable at this time, but still noted with abnormal kidney function, elevation of BUN and creatinine. PLAN OF MANAGEMENT: Decrease Solu-Medrol 40 mg daily dosing. Continuation of the BiPAP, oxygen supplementation. Maximize the cardiac and renal problems management as well. [place], [place] PROGRESS NOTE NAME: JESUS NORTH UNIT #: [id number] ROOM: 523 DOCTOR: CAROL LALA MD BIRTHDATE: [birth year] CAROL CABRALES MD CM:PNTRANS [id number] CAROL GAMBLE MD 07/23/18 1652 interface
--- NOTE | ~2018-07-20 | EKG ---
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1950 Requested By: AICHA DELGADO Order Number: [id number] Reading MD: Wilfrido Lisa MD Measurements Intervals [place] Rate: 84 P: 39 [place]: 233 QRS: -28 QRSD: 142 T: 63 QT: 407 QTc: 482 Interpretive Statements Sinus rhythm Prolonged AZ interval Left bundle branch block Compared to ECG 06/21/2018 11:51:23 First degree AV block now present Left bundle-branch block now present Short AZ interval no longer present Intraventricular conduction delay no longer present Left ventricular hypertrophy no longer present Early repolarization no longer present ST (T wave) deviation no longer present Prolonged QT interval no longer present Electronically Signed On 07-23-2018 10:02:27 PDT by Wilfrido Lisa MD CM:EKGRPT:ELECTROCARDIOGRAM REPORT [id number] AICHA DELGADO MD EPIPHANY DRAFT REPORT AICHA DELGADO MD
[~2018-07-20 11:27] MED LIST changes: -APRESOLINE10 MG PO; -CARVEDILOL3.125 MG PO; -COREG12.5 M1 PO; -DOXYCYCLINE100 MG PO; -ELIQUIS2.5 M1 PO; -FUROSEMIDE20 M1 PO; -HYDRALAZINE10 MG PO; -HYDROCODONE-AC1 EAC1 PO; -OXYBUTYNIN CHLOR5 MG PO; -POTASSIUM CHLO10 ME4 PO; -PREDNISONE10 MG PO; -PREDNISONE50 MG PO; -Percocet 325 MG1 TAB PO
[2018-07-20 11:51] LABS: BASO % 0.6 % (0.0-1.0); EOS # 0.2 10*3/uL (0.0-0.4); EOS % 3.3 % (1.0-4.0); HEMATOCRIT 32.6 % (37.0-47.0); HEMOGLOBIN 9.9 g/dl (12.0-16.0); LYMPH # 0.9 10*3/uL (1.3-4.4); LYMPH % 17.2 % (27.0-41.0); MEAN CELL VOLUME 105.2 fl (81.0-99.0); MEAN CORPUSCULAR HGB 31.9 pg (27.0-31.0); MEAN CORPUSCULAR HGB CONC 30.4 g/dl (33.0-37.0); MEAN PLATELET VOLUME 10.3 fl (9.6-12.3); MONO # 0.5 10*3/uL (0.1-1.0); MONO % 9.3 % (3.0-9.0); NEUT # 3.6 10*3/uL (2.3-7.9); NEUT % 69.4 % (47.0-73.0); PLATELET COUNT AUTOMATED 228 10*3/uL (130-400); RED CELL DISTRI WIDTH 15.9 % (0-14.5); WHITE BLOOD COUNT 5.2 10*3/uL (4.8-10.8)
[2018-07-20 12:01] LABS: ACT PARTIAL THROMBO TIME 30.5 SECONDS (20.8-31.5); INTERNATIONAL NORM RATIO 1.2 (2.0-3.5)
--- NOTE | 2018-07-20 12:01 | NUR ---
AFTER RESP TREATMENT, PLACED ON VENTURI MASK 40% AT 12 LPM. PT MORE RELAXED, POX 94%
[2018-07-20 12:10] LABS: ALBUMIN 3.8 gm/dl (3.1-4.5); ALKALINE PHOSPHATASE 328 U/L (45-117); BUN 70 mg/dl (7-24); CHLORIDE 110 mmol/L (98-107); CREATININE 4.21 mg/dL (0.55-1.02); POTASSIUM 5.4 mmol/L (3.5-5.1); SGOT/AST 44 IU/L (3-35); SGPT/ALT 56 U/L (12-78); SODIUM 140 mmol/L (136-145); TOTAL PROTEIN 7.4 gm/dL (6.4-8.2)
[2018-07-20 12:13] LABS: TROPONIN I < 0.015 ng/ml (<0.045)
--- NOTE | 2018-07-20 12:36 | NUR ---
PT C/O CHEST PAIN AT THIS TIME. DR DELGADO AWARE. EKG ORDERED.
--- NOTE | 2018-07-20 12:53 | NUR ---
PT REPRTS BEING PAIN FREE.
--- NOTE | 2018-07-20 12:55 | NUR ---
RESP THERAPY HERE TO INITIATE BIPAP PER DR DELGADO ORDER.
--- NOTE | 2018-07-20 14:07 | NUR ---
PT TO CT AT THIS TIME.
--- NOTE | 2018-07-20 14:18 | NUR ---
PT VOIDED INTO BESIDE COMMODE, TOLERATED FAIR.
[2018-07-20 15:49] LABS: BILIRUBIN NEGATIVE (NEGATIVE); BLOOD 1+ (NEGATIVE); CLARITY SL CLOUDY (CLEAR); GLUCOSE NEGATIVE (NEGATIVE); KETONE NEGATIVE (NEGATIVE); LEUKO ESTERASE 1+ (NEGATIVE); NITRITE NEGATIVE (NEGATIVE); PH 5.5 (5.0-9.0); UROBILINOGEN 0.2 E.U./dl (0.2-1.0)
[2018-07-20 15:50] LABS: COLOR YELLOW (YELLOW)
[2018-07-20 15:58] LABS: BACTERIA 1+; HYALINE CAST 0-2; WBC 21-30 wbc/hpf (0-5)
--- NOTE | 2018-07-20 16:10 | NUR ---
PT IN DEM. PT ON CONTINUOUS BIPAP. PER MD REQUEST, PT TAKEN OFF OF BIPAP AND PLACED ON 40% VENTURI MASK. SPO2 96% HR 84/MIN
--- NOTE | 2018-07-20 16:12 | NUR ---
PT PLACED TAYE ONTO VENTURI MASK 40% AT [address] DELGADO ORDERS. FAMILY AT BEDSIDE. SEMS TO BE TOLERATING. POX 93% RR 17/MIN
--- NOTE | 2018-07-20 16:26 | NUR ---
SISTER TRENA MARIN [phone] SON OSCAR NORTH [phone]
--- NOTE | 2018-07-20 16:43 | NUR ---
A 67, admitted to ICCU, under the services of ARY Valencia DO with a diagnosis of ACURE RENAL/RESP FAILURE. Chief complaint is SICK AT HOME. Patient arrived via stretcher from ER. Monitor applied. Initial assessment completed. Vital signs taken and recorded. ARY VALENCIA DO notified of admission to the unit. Orders received. See assessment for past medical history, medications and allergies. Patient and/or family oriented to unit. [facility] ICCU visitation policy reviewed. Clothing/patient valuable form completed. JAIR FERNÁNDEZ
[2018-07-20 17:31] LABS: ABG HCO3 18.8 mmol/l (22-26); ABG O2 SATURATION 61.5 % (95-97); ARTERIAL BLOOD GAS PCO2 38.5 mmHg (35-45); ARTERIAL BLOOD GAS PH 7.302 (7.35-7.45)
[2018-07-20 17:34] LABS: ABG BASE EXCESS -6.8 mmol/L (-2.0-2.0); ARTERIAL BLOOD GAS PO2 31.9 mmHg (80-90)
[2018-07-20 17:56] LABS: ABG HCO3 18.1 mmol/l (22-26); ABG O2 SATURATION 91.4 % (95-97); ARTERIAL BLOOD GAS PCO2 34.9 mmHg (35-45); ARTERIAL BLOOD GAS PH 7.327 (7.35-7.45); ARTERIAL BLOOD GAS PO2 56.2 mmHg (80-90)
--- NOTE | 2018-07-20 20:41 | NUR ---
I ASKED THE PATIENT AGAIN THAT IF SHE NEEDED A TUBE DOWN HER THROAT TO HELP HER BREATH DID SHE WANT IT SHE SAID NO.
--- NOTE | 2018-07-20 21:17 | NUR ---
RECEIVED CALL FROM NURSING OUTPATIENT SURGERY RN DAYSI THAT DR. ISRAEL TOLD DR. MCCRACKEN THAT PATIENT CAN BE TRANSFERRED OUT TO THE FLOOR. HOSPITALIST DR. DOWNING NOTIFIED OF THIS AND SAID HE WILL PUT IN THE ORDERS TO TRANSFER HER OUT TO THE FLOOR.
[2018-07-20 21:59] LABS: ABG BASE EXCESS -7.8 mmol/L (-2.0-2.0); ABG HCO3 17.2 mmol/l (22-26); ABG O2 SATURATION 91.9 % (95-97); ARTERIAL BLOOD GAS PCO2 34.3 mmHg (35-45); ARTERIAL BLOOD GAS PH 7.319 (7.35-7.45); ARTERIAL BLOOD GAS PO2 59.5 mmHg (80-90)
--- NOTE | 2018-07-20 22:34 | NUR ---
NO CALL BACK FROM CARDIOLOGY SO I CALLED AGAIN AND A MESSAGE WAS LEFT WITH ANSWERING SERVICE AND CALLS WILL BE HANDED OUT IN THE MORNING.
--- NOTE | 2018-07-20 22:57 | NUR ---
FRANCISCO CALLED BACK WILL SEE TOMORROW NO NEW ORDERS.
--- NOTE | 2018-07-20 23:13 | NUR ---
PATIENT TRANSPORTED FROM ICU TO ROOM 523. PATIENT IN STABLE CONDITION, VITALS STABLE. PATIENT CURRENTLY ON VENTURI MASK AT 50% 12L WITH POX 92%. RESEARCH SUPPORT SPECIALIST APPLIED PER ORDER. PATIENT DENIES ANY SOB, CHEST PAIN, OR GENERALIZED DISCOMFORT. PATIENT TRANSFERRED FROM GREEN BED TO BLUE BED. NO S/S OF SKIN BREAKDOWN NOTED. WILL MONITOR.
[2018-07-21 06:24] LABS: HEMATOCRIT 33.6 % (37.0-47.0); HEMOGLOBIN 10.2 g/dl (12.0-16.0); MEAN CELL VOLUME 106.3 fl (81.0-99.0); MEAN CORPUSCULAR HGB 32.3 pg (27.0-31.0); MEAN CORPUSCULAR HGB CONC 30.4 g/dl (33.0-37.0); MEAN PLATELET VOLUME 10.3 fl (9.6-12.3); PLATELET COUNT AUTOMATED 190 10*3/uL (130-400); RED BLOOD COUNT 3.16 10*6/uL (4.10-5.10); RED CELL DISTRI WIDTH 15.7 % (0-14.5); WHITE BLOOD COUNT 3.1 10*3/uL (4.8-10.8)
[2018-07-21 06:41] LABS: CREATININE 3.96 mg/dL (0.55-1.02); PHOSPHOROUS 5.4 mg/dL (2.5-4.9); POTASSIUM 5.7 mmol/L (3.5-5.1)
[2018-07-21 07:18] LABS: BURR CELLS MODERATE; PLATELET SUFFICIENCY NORMAL (NORMAL); POLYCHROMASIA SLIGHT; TOTAL CELLS COUNTED 100 #CELLS
--- NOTE | 2018-07-21 07:35 | NUR ---
PATIENT TAKEN OFF OF BI-PAP, PLACED ON 4 L/M.
[2018-07-21 12:00] VITALS: BP 133/77
[2018-07-21 16:00] VITALS: BP 123/74
--- NOTE | 2018-07-21 17:15 | NUR ---
PATIENT REFUSES ABG. RN NOTIFIED.
[2018-07-21 20:00] VITALS: BP 126/61
--- NOTE | 2018-07-21 21:01 | NUR ---
[facility] TECH CALLED, POX DOWN TO 87%. ARRIVED IN PTs ROOM AND NOTICED THAT O2 WAS NOT ON BUT CANNULA WAS IN PLACE. TURNED 02 ON TO 3L - POX 89%. INCREASED TO 3.5L - POX 92%. NO COMPLAINTS AT THIS TIME. TOLERATED HS MEDS WELL. CALL LIGHT IN REACH. BED ALARM ON.
[2018-07-22] VITALS: BP 105/55
--- NOTE | 2018-07-22 04:31 | NUR ---
TAKEN OFF OF BIPAP, PLACED ON 3L NC.
--- NOTE | 2018-07-22 04:45 | NUR ---
PT NOTED TO BE OFF BIPAP AND ON 3LNC. PT NO SIGNS OF RES DISTRESS OR SOB AT THIS TIME. WILL CONTINUE TO REASSESS NEEDED.
[2018-07-22 06:57] LABS: ALBUMIN 3.2 gm/dl (3.1-4.5); POTASSIUM 5.2 mmol/L (3.5-5.1)
[2018-07-22 06:58] LABS: CREATININE 3.76 mg/dL (0.55-1.02)
[2018-07-22 06:59] LABS: COMPLEMENT C4 001834 21 mg/dL (14-44)
[2018-07-22 07:21] LABS: HEMATOCRIT 32.4 % (37.0-47.0); HEMOGLOBIN 10.3 g/dl (12.0-16.0); MEAN CORPUSCULAR HGB 32.3 pg (27.0-31.0); MEAN CORPUSCULAR HGB CONC 31.8 g/dl (33.0-37.0); MEAN PLATELET VOLUME 10.9 fl (9.6-12.3); PLATELET COUNT AUTOMATED 193 10*3/uL (130-400); RED BLOOD COUNT 3.19 10*6/uL (4.10-5.10); RED CELL DISTRI WIDTH 15.7 % (0-14.5)
[2018-07-22 07:22] LABS: MEAN CELL VOLUME 101.6 fl (81.0-99.0)
[2018-07-22 08:00] VITALS: BP 124/70
[2018-07-22 08:00] LABS: BURR CELLS FEW; PLATELET SUFFICIENCY NORMAL (NORMAL); TOTAL CELLS COUNTED 100 #CELLS
[2018-07-22 08:01] LABS: POLYCHROMASIA SLIGHT
[2018-07-22 12:00] VITALS: BP 127/63
[2018-07-22 16:00] VITALS: BP 135/71
[2018-07-22 18:03] LABS: HEPATITIS B SURFACE AG Negative (Negative); HEPATITIS C VIRUS ANTIBODY 0.2 s/co (0.0-0.9)
[2018-07-22 20:00] VITALS: BP 129/63
[2018-07-23] VITALS: BP 132/65
--- NOTE | 2018-07-23 01:01 | NUR ---
24 HR chart check completed.
--- NOTE | 2018-07-23 02:13 | NUR ---
RECEIVED CALL FROM [facility], PATIENT HAS SWITCHED FROM A FIB TO AFLUTTER. PATIENT RESTING WITH BIPAP ON AT THIS TIME. DENIES ANY CHEST PAIN, PRESSURE, OR DIZZINESS. WILL CONTINUE TO MONITOR.
--- NOTE | 2018-07-23 02:15 | NUR ---
DR MYERS CALLED AND MADE AWARE OF PATIENTS CHANGING FROM AFIB TO AFLUTTER. NO NEW ORDERS AT THIS TIME. MONITOR PATIENT.
--- NOTE | 2018-07-23 04:00 | NUR ---
PATIENT RESTING QUIETLY AT THIS TIME ON BIPAP. PT DOES NOT APPEAR TO BE IN ANY DISTRESS. CALL LIGHT WITHIN REACH. WILL CONTINUE TO MONITOR.
--- NOTE | 2018-07-23 05:25 | NUR ---
PATIENT TAKEN OFF BIPAP AND PLACED ON 4LNC. NO DISTRESS NOTED. MORNING MEDICATIONS GIVEN. KHALIL EMPTIED. PATIENT HAS NO COMPLAINTS AT THIS TIME. CALL LIGHT WITHIN REACH.
[2018-07-23 06:52] LABS: ALBUMIN 3.2 gm/dl (3.1-4.5); CREATININE 3.43 mg/dL (0.55-1.02); PHOSPHOROUS 5.4 mg/dL (2.5-4.9)
[2018-07-23 07:02] LABS: POTASSIUM 4.3 mmol/L (3.5-5.1)
[2018-07-23 08:00] VITALS: BP 110/70
[2018-07-23 12:00] VITALS: BP 125/72
--- NOTE | 2018-07-23 12:45 | NUR ---
Health Management Consultant in to talk to patient. Patient states lives at HOME with ALONE. There are NO steps in the home. Physician: Yany CASTRO [facility]acy: [facility] Home health services: [facility] Patient's level of ADLs: MINIMAL ASSIST Patient has working utilities: YES DME: OXYGEN PORTABLE TANKS NEBULIZER Follow-up physician's appointment after d/c: WILL BE MADE BY HOSPITALIST NURSE DIRECCTOR ON DISCHARGE Does patient want to access PORTAL?: NO Discharge plan PT LIVES AT HOME ALONE STATES SHE HAS [facility] AT HOME AND PLANS TO RETURN HOME WITH THEM ON DISCHARGE. TALKED WITH PT ABOUT HOME HEALTH OR SKILLED STAY BUT SHE REFUSES. WILL CONTINUE TO FOLLOW. STATES SHE WILL HAVE A RIDE HOME ON DISCHARGE. . CRISTIAN SERNA
[2018-07-23 16:00] VITALS: BP 113/51
--- NOTE | 2018-07-23 16:04 | NUR ---
REFERRAL FAXED TO [facility].
[2018-07-23 17:04] LABS: ATYPICAL PANCA <1:20 titer (Neg:<1:20); CYTOPLASMIC (C-ANCA) <1:20 titer (Neg:<1:20)
--- NOTE | 2018-07-23 19:00 | NUR ---
PT AWAKE IN BED DURING BEDSIDE SHIFT REPORT. NO C/O VOICED AT PRESENT TIME. CALL LIGHT IN REACH.
[2018-07-23 20:00] VITALS: BP 114/54
--- NOTE | 2018-07-23 23:27 | NUR ---
PATIENT REFUSED BIPAP. INSTRUCTED PATIENT SHE MAY CALL FOR BIPAP AT ANYTIME THROUGHOUT THE NIGHT. PATIENT CURRENTLY ON 5 L/M NC SPO2 95%.
[2018-07-24] VITALS: BP 115/50
[2018-07-24 08:00] VITALS: BP 122/72; BP 132/76
[2018-07-24 08:17] LABS: ALBUMIN 2.8 gm/dl (3.1-4.5); CREATININE 3.18 mg/dL (0.55-1.02); POTASSIUM 4.2 mmol/L (3.5-5.1)
--- NOTE | 2018-07-24 10:35 | NUR ---
PHYSICAL THERAPY PAtient having echo at this time. Thank you for this referral. Linda Eller,PT
--- NOTE | 2018-07-24 11:03 | NUR ---
Patient not available for OT evaluation as she is getting an ECHO. Liv Hdz OTR/L
[2018-07-24 12:00] VITALS: BP 116/69
--- NOTE | 2018-07-24 13:28 | NUR ---
Occupational Therapy evaluation completed on 5 with full eval to follow. Precaution include fall risk, O2 use,IV UE,moderate complexty level 86692 via chart review, testing and evaluation. Recommend OT per pOC and SNF to enable safe return home alone at [facility]. Thank you for this referral. Liv Hdz OTR/l
--- NOTE | 2018-07-24 13:47 | NUR ---
CALLED TO ROOM BY PT. PT HAS NOW DECIDED THAT SHE WOULD LIKE TO GO TO [facility]. AICHA NOTIFIED AND WILL HAVE ORDER PUT IN. ADINA NOTIFIED TO SEND REFERRAL.
--- NOTE | 2018-07-24 14:00 | NUR ---
PHYSICAL THERAPY Patient evaluated on 5, full evaluation to follow. Continue with PT as per plan of care with fall, 02 and acute debility precautions. Will require SNF. PAtient is moderate complexity via chart review, tests and evaluation: [id number]. Thank you for this referral. Linda Eller,PT
--- NOTE | 2018-07-24 14:07 | NUR ---
SW sent over a referral to [facility] and informed Angy that the referral had been faxed for pt to have a STC stay. DADA Brown HANDBAG STITCHER, PAINT AND TABLE EDGER
[2018-07-24 16:00] VITALS: BP 105/52
--- NOTE | 2018-07-24 19:35 | NUR ---
DR. GOMEZ NOTIFIED THAT PT DOES NOT WEAR BIPAP ANY LONGER AND SATS IN HIGH 90'S. OK TO D/C CONTINUOUS PULSE OX.
[2018-07-24 20:00] VITALS: BP 123/58
[2018-07-25] VITALS: BP 128/53
--- NOTE | 2018-07-25 01:00 | NUR ---
O2 TITRATED TO2 LN BY RN.. BIPAP HAS BEEN D/C'D.
[2018-07-25 08:00] VITALS: BP 126/64
--- NOTE | 2018-07-25 09:08 | NUR ---
PT SITTING UP IN BED, EATING BREAKFAST. NO DISTRESS NOTED. WILL MONITOR
--- NOTE | 2018-07-25 09:15 | NUR ---
SW was informed that pt has changed her mind and is now going home. TIFFANIE has notified Angy at [facility]. DADA AGUIRRE,ASAD
--- NOTE | 2018-07-25 09:25 | NUR ---
OT NOTE Pt was seen this A.M. 1:1 for 15 minute OT session. Upon arrival pt was sitting upright in the recliner. Pt identified by name and and had no complaints at this time. Pt presented to therapy with continous 2L-O2 via NC which she remained on throughout entire session. Sit to stand completed from chair level with Omsany TRUJILLO. Functional mobility completed around the room to the bathroom with Osmany TRUJILLO due to bouts of unsteady gait resulting in LOB to either right or left side. Throughout mobility pt required constant verbal prompts for safety awareness with O2 tube. Pt had poor carry over resulting in maxA for O2 mangement. Pt transferred on/off standard commode with CGA. clothing management completed with Osmany, and toilet hygiene completed with supervision while seated. Pt then stood sink side while washing her hands and face with CGA. Pt had one LOB while washing her face and vision was cut requiring Osmany to correct. Pt then returned to the recliner where she was left sitting upright with call light in hand, tray table in place, and body alarm on for safety. Continue with rec D/C plan to SNF. ITZ Osorio/Claudio
[2018-07-25] MEDS ORDERED: CARVEDILOL3.125 MG PO (11:28)
[2018-07-25] MEDS ORDERED: ELIQUIS2.5 M1 PO (11:28)
[2018-07-25] MEDS ORDERED: XANAX0.25 MG PO (11:31)
[2018-07-25] MEDS ORDERED: ZOLPIDEM TART5 MG PO (11:31)
[2018-07-25] MEDS ORDERED: HYDROCODONE-AC1 EAC1 PO (11:47)
[2018-07-25] MEDS ORDERED: PREDNISONE10 MG PO (11:47)
--- NOTE | 2018-07-25 12:08 | NUR ---
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 PT AND PT RIDE BOTH INSTRUCTED ON THE RISKS OF PT NOT HAVING O2 NC FOR RIDE HOME
--- NOTE | 2018-07-25 12:09 | NUR ---
Discharge instructions reviewed with patient/family. Patient receptive and verbalizes understanding. Follow-up care arranged. Written instructions given to patient/family. MITCHEL SHEA
--- NOTE | 2018-07-25 12:18 | NUR ---
PT SAYS TODAY THAT SHE DOES NOT WANT TO GO TO [facility] AND MIGNON LIKE TO GO HOME WITH [facility]. TIFFANIE HOLDEN INFORMED TO CANCEL REFERRAL TO [facility].
[2018-07-25] MEDS ORDERED: HYDRALAZINE10 MG PO (12:38)
--- NOTE | 2018-07-25 16:03 | NUR ---
OCCUPATIONAL THERAPY CO-SIGN I approve of the Occupational Therapy notes written above. LORI VALLES OTR/Claudio
[2018-08-10] MEDS ORDERED: COREG12.5 M1 PO (14:29)
== END 2018-07-25 12:21 | disposition home or self-care (01) | DRG 871 ==
LOC: ED 11:27 → ICCU 15:24 → EDHOLD 15:24 → 5E 15:24 → ICCU 16:26 → 5E 22:21
PROVIDERS: Emergency Medicine; Internal Medicine; Internal Medicine Critical Care Medicine; Registered Nurse; Student in an Organized Health Care Education/Training Program; ADMIT Internal Medicine
PROC: 5A09357 Assistance with Respiratory Ventilation, Less than 24 Consecutive Hours, Continuous Positive Airway Pressure (ICD-10-PCS; principal; 2018-07-20)
PROC: 5A09357 Assistance with Respiratory Ventilation, Less than 24 Consecutive Hours, Continuous Positive Airway Pressure (ICD-10-PCS; 2018-07-21)
PROC: 5A09357 Assistance with Respiratory Ventilation, Less than 24 Consecutive Hours, Continuous Positive Airway Pressure (ICD-10-PCS; 2018-07-23)
DX: A41.9 Sepsis, unspecified organism (principal); J96.21 Acute and chronic respiratory failure with hypoxia; N17.0 Acute kidney failure with tubular necrosis; J15.6 Pneumonia due to other Gram-negative bacteria; I50.43 Acute on chronic combined systolic (congestive) and diastolic (congestive) heart failure; N18.4 Chronic kidney disease, stage 4 (severe); N39.0 Urinary tract infection, site not specified; J44.0 Chronic obstructive pulmonary disease with (acute) lower respiratory infection; I13.0 Hypertensive heart and chronic kidney disease with heart failure and stage 1 through stage 4 chronic kidney disease, or unspecified chronic kidney disease; E44.0 Moderate protein-calorie malnutrition; J44.1 Chronic obstructive pulmonary disease with (acute) exacerbation; N12 Tubulo-interstitial nephritis, not specified as acute or chronic; E87.4 Mixed disorder of acid-base balance; J98.11 Atelectasis; D53.9 Nutritional anemia, unspecified; E87.5 Hyperkalemia; E87.8 Other disorders of electrolyte and fluid balance, not elsewhere classified; E83.41 Hypermagnesemia; R74.8 Abnormal levels of other serum enzymes; R74.0 Nonspecific elevation of levels of transaminase and lactic acid dehydrogenase [LDH]; M19.90 Unspecified osteoarthritis, unspecified site; K21.9 Gastro-esophageal reflux disease without esophagitis; E03.9 Hypothyroidism, unspecified; N13.9 Obstructive and reflux uropathy, unspecified; F32.9 Major depressive disorder, single episode, unspecified; E11.40 Type 2 diabetes mellitus with diabetic neuropathy, unspecified; F41.9 Anxiety disorder, unspecified; Z66 Do not resuscitate; Z51.5 Encounter for palliative care; E78.2 Mixed hyperlipidemia; E11.65 Type 2 diabetes mellitus with hyperglycemia; E11.22 Type 2 diabetes mellitus with diabetic chronic kidney disease; E83.39 Other disorders of phosphorus metabolism; Z88.6 Allergy status to analgesic agent; Z87.440 Personal history of urinary (tract) infections; Z98.51 Tubal ligation status; Z90.710 Acquired absence of both cervix and uterus; Z87.891 Personal history of nicotine dependence; Z80.1 Family history of malignant neoplasm of trachea, bronchus and lung; Z80.3 Family history of malignant neoplasm of breast; Z82.49 Family history of ischemic heart disease and other diseases of the circulatory system; Z83.3 Family history of diabetes mellitus; Z79.899 Other long term (current) drug therapy; Z79.4 Long term (current) use of insulin; Z68.29 Body mass index [BMI] 29.0-29.9, adult

== ENCOUNTER 2018-07-28 19:08 | Inpatient (IN) | payer MEDICAID ==
[~2018-07-28] VITALS: Ht 165.1 cm; Wt 73.7 kg
--- NOTE | ~2018-07-28 | EKG ---
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: Andi Prado : 1950 Requested By: HOLLI BOATENG Order Number: [id number] Reading MD: Karmen Metzger Measurements Intervals [place] Rate: 82 P: [place]: QRS: -28 QRSD: 138 T: 88 QT: 393 QTc: 459 Interpretive Statements Atrial flutter with predominant 3:1 AV block Ventricular premature complex Left bundle branch block Compared to ECG 07/20/2018 17:38:34 AV block, advanced (high-grade) now present Ventricular premature complex(es) now present Sinus rhythm no longer present First degree AV block no longer present Electronically Signed On 07-29-2018 9:01:19 PDT by Karmen Metzger CM:EKGRPT:ELECTROCARDIOGRAM REPORT [id number] HOLLI SAMUELS DRAFT REPORT HOLLI BOATENG DO
[~2018-07-28 19:08] MED LIST changes: +CARVEDILOL3.125 MG PO; +ELIQUIS2.5 M1 PO; +HYDRALAZINE10 MG PO; +HYDROCODONE-AC1 EAC1 PO; +PREDNISONE10 MG PO
[2018-07-28 19:09] VITALS: BP 137/87
[2018-07-28 19:46] LABS: HEMATOCRIT 37.7 % (37.0-47.0); MEAN CELL VOLUME 100.3 fl (81.0-99.0); MEAN CORPUSCULAR HGB 31.9 pg (27.0-31.0); MEAN CORPUSCULAR HGB CONC 31.8 g/dl (33.0-37.0); MEAN PLATELET VOLUME 10.8 fl (9.6-12.3); PLATELET COUNT AUTOMATED 183 10*3/uL (130-400); RED BLOOD COUNT 3.76 10*6/uL (4.10-5.10); RED CELL DISTRI WIDTH 14.3 % (0-14.5); WHITE BLOOD COUNT 9.8 10*3/uL (4.8-10.8)
[2018-07-28 20:05] LABS: ALBUMIN 3.5 gm/dl (3.1-4.5); CREATININE 2.54 mg/dL (0.55-1.02); POTASSIUM 4.1 mmol/L (3.5-5.1); TOTAL CELLS COUNTED 100 #CELLS; TOTAL PROTEIN 6.9 gm/dL (6.4-8.2)
[2018-07-28 20:06] LABS: PLATELET SUFFICIENCY NORMAL (NORMAL); TROPONIN I 0.028 ng/ml (<0.045)
[2018-07-28 20:08] LABS: BILIRUBIN NEGATIVE (NEGATIVE); BLOOD 2+ (NEGATIVE); CLARITY SL CLOUDY (CLEAR); COLOR YELLOW (YELLOW); GLUCOSE 3+ (NEGATIVE); KETONE NEGATIVE (NEGATIVE); LEUKO ESTERASE 2+ (NEGATIVE); NITRITE NEGATIVE (NEGATIVE); PH 5.5 (5.0-9.0); UROBILINOGEN 0.2 E.U./dl (0.2-1.0)
--- NOTE | 2018-07-28 20:11 | NUR ---
DR. BOATENG NOTIFIED OF CRITICAL GLUCOSE OF 536
[2018-07-28 20:48] LABS: WBC TNTC wbc/hpf (0-5); YEAST 2+
[2018-07-28 22:30] VITALS: BP 136/86
--- NOTE | 2018-07-28 22:30 | NUR ---
Time: 2229 A 67 year old 65 admitted to 5E under services of SHANNA ARANGO DO. Pt. arrived via wheel chair from ER. Chief complaint: HYPERGLYCEMIA. ALEX LAKHANI
[2018-07-28 22:39] VITALS: BP 132/78
--- NOTE | 2018-07-28 22:45 | NUR ---
NOTIFIED DR. GOMEZ OF PATIENT CRITICAL LATIC ACID. NO NEW ORDERS.
[2018-07-29] VITALS: BP 131/64
--- NOTE | 2018-07-29 00:08 | NUR ---
NOTIFIED DR. GOMEZ OF PATIENT CRITICAL HIGH LACTIC ACID OF 2.8. NO NEW ORDERS. WILL CONTINUE TO MONITOR.
--- NOTE | 2018-07-29 00:10 | NUR ---
AURA GOMEZ PATIENT BLOOD SUGAR 476. ORDERED TO GIVE 22UNITS ALSO NOTIFIED HIM PATIENT MED REC IS UP TO DATE.
--- NOTE | 2018-07-29 04:05 | NUR ---
PATIENT SLEEPING. NO SIGNS OF DISTRESS. IV FLUIDS RUNNING AT 80ML/HR. BED IN LOWEST POSITION, CALL LIGHT WITHIN REACH. WILL CONTINUE TO MONTIOR.
[2018-07-29 06:22] LABS: HEMATOCRIT 39.4 % (37.0-47.0); HEMOGLOBIN 12.6 g/dl (12.0-16.0); LYMPH # 0.7 10*3/uL (1.3-4.4); LYMPH % 6.4 % (27.0-41.0); MEAN CELL VOLUME 99.5 fl (81.0-99.0); MEAN CORPUSCULAR HGB 31.8 pg (27.0-31.0); MEAN PLATELET VOLUME 10.8 fl (9.6-12.3); MONO % 8.4 % (3.0-9.0); NEUT # 9.6 10*3/uL (2.3-7.9); NEUT % 84.8 % (47.0-73.0); PLATELET COUNT AUTOMATED 185 10*3/uL (130-400); RED BLOOD COUNT 3.96 10*6/uL (4.10-5.10); RED CELL DISTRI WIDTH 14.2 % (0-14.5); WHITE BLOOD COUNT 11.3 10*3/uL (4.8-10.8)
[2018-07-29 06:39] LABS: CREATININE 2.2 mg/dL (0.55-1.02); POTASSIUM 3.6 mmol/L (3.5-5.1)
[2018-07-29 06:48] LABS: THYROID STIM HORMONE (HS) 16.1 uIU/ml (0.358-4.75)
[2018-07-29 08:00] VITALS: BP 138/66
[2018-07-29 12:00] VITALS: BP 130/61
[2018-07-29] MEDS ORDERED: Percocet 325 MG1 TAB PO (13:19)
[2018-07-29] MEDS ORDERED: OXYBUTYNIN CHLOR5 MG PO (13:20)
[2018-07-29] MEDS ORDERED: FUROSEMIDE20 M1 PO (13:20)
[2018-07-29] MEDS ORDERED: CITALOPRAM20 MG PO (13:21)
[2018-07-29] MEDS ORDERED: POTASSIUM CHLO10 ME4 PO (13:21)
[2018-07-29] MEDS ORDERED: APRESOLINE10 MG PO (13:22)
[2018-07-29 16:00] VITALS: BP 130/67
[2018-07-29 20:00] VITALS: BP 133/50
--- NOTE | 2018-07-29 20:59 | NUR ---
24 HR chart check completed.
--- NOTE | 2018-07-29 21:00 | NUR ---
SLEEPING, AWAKENS EASILY. FLAT AFFECT. RESPIRATIONS EASY. LUNGS DIMINISHED. PULSE OX 96% RA. NON-PROD COUGH. C/O STRESS INCONT, HOME PULL-UPS IN USE. TRACE BLE EDEMA. OFFERED AND EDUCATED REGARDING TEDS, PATIENT RECEPTIVE AND TEDS PLACED AT BEDSIDE FOR USE IN AM. CALL LIGHT WITHIN REACH. NO VOICED COMPLAINTS
[2018-07-30] VITALS: BP 134/61
--- NOTE | 2018-07-30 | NUR ---
SLEEPING. NO DISTRESS NOTED. RESPIRATIONS EASY. VSS. CALL LIGHT WITHIN REACH
--- NOTE | 2018-07-30 06:00 | NUR ---
slept throughout night with no distress noted. respirations easy. call light within reach. no voiced complaints this shift
[2018-07-30 06:47] LABS: EOS # 0.1 10*3/uL (0.0-0.4); EOS % 1.3 % (1.0-4.0); HEMATOCRIT 37.3 % (37.0-47.0); HEMOGLOBIN 11.8 g/dl (12.0-16.0); LYMPH # 2.2 10*3/uL (1.3-4.4); LYMPH % 22.5 % (27.0-41.0); MEAN CELL VOLUME 98.4 fl (81.0-99.0); MEAN CORPUSCULAR HGB 31.1 pg (27.0-31.0); MEAN CORPUSCULAR HGB CONC 31.6 g/dl (33.0-37.0); MEAN PLATELET VOLUME 11.4 fl (9.6-12.3); MONO # 1.1 10*3/uL (0.1-1.0); MONO % 11.1 % (3.0-9.0); NEUT # 6.2 10*3/uL (2.3-7.9); NEUT % 64.7 % (47.0-73.0); PLATELET COUNT AUTOMATED 175 10*3/uL (130-400); RED BLOOD COUNT 3.79 10*6/uL (4.10-5.10); RED CELL DISTRI WIDTH 14.3 % (0-14.5); WHITE BLOOD COUNT 9.6 10*3/uL (4.8-10.8)
[2018-07-30 07:00] LABS: CREATININE 2.07 mg/dL (0.55-1.02); POTASSIUM 4.1 mmol/L (3.5-5.1)
[2018-07-30 08:00] VITALS: BP 120/59
[2018-07-30 12:00] VITALS: BP 132/70
--- NOTE | 2018-07-30 12:36 | NUR ---
Nutritional Support Services Note: Discussing with pt 1800cal diabetic diet. Diet copy given to pt. She states she is noncompliant to diet. Eats sweets almost daily. Lives alone, relies on frozen meals. Encouraged healthy eating, encouraged her to avoid sweets. Discussed having regular meal times and a night snack. Will follow as needed. Encouraged her to call me with any questions. Joann Mejia Rdn Ld
--- NOTE | 2018-07-30 13:38 | NUR ---
Lead Quality Technician in to talk to patient. Patient states lives at HOME with ALONE. There are FEW steps in the home. Physician: Yany CASTRO Pharmacy: [facility] Home health services: [facility] Patient's level of ADLs: MODERATE ASSIST Patient has working utilities: YES DME: OXYGEN, NEBULIZER Follow-up physician's appointment after d/c: WILL BE MADE BY HOSPITALIST NURSE DIRECTOR ON DISCHARGE Does patient want to access PORTAL?: NO Discharge plan PT STATES SHE IS NOT GOING TO A FACILITY ON DISCHARGE. SHE WILL BE GOING TO STAY WITH HER NEICE FOR A WHILE. SHE STATES SHE WILL HAVE HOME HEALTH ON DISCHARGE. PT HAD [facility] PRIOR TO HOSPITALATION. WILL GET RESUME ORDER AND SEND IT. NO OTHER NEEDS AT THIS TIME. WILL CONTINUE TO FOLLOW. PT STATES SHE WILL HAVE A RIDE HOME.. CRISTIAN SERNA
--- NOTE | 2018-07-30 14:10 | NUR ---
PHYSICAL THERAPY PAtient reports she is being dsicharged. Thank you for this referral. Linda Eller,PT
--- NOTE | 2018-07-30 14:11 | NUR ---
Discharge instructions reviewed with patient/family. Patient receptive and verbalizes understanding. Follow-up care arranged. Written instructions given to patient/family. SHAI DIAS
[2018-08-10] MEDS ORDERED: COREG12.5 M1 PO (14:29)
[2018-11-23] MEDS ORDERED: ZOLPIDEM TART10 MG PO (19:41)
[2018-11-23] MEDS ORDERED: ISORDIL10 M1 PO (19:44)
[2018-11-23] MEDS ORDERED: APRESOLINE10 MG PO (19:47)
[2018-11-23] MEDS ORDERED: GLIPIZIDE10 M2 PO (19:49)
== END 2018-07-30 14:11 | disposition home or self-care (01) | DRG 638 ==
LOC: ED 19:08 → 5E 21:41 → EDHOLD 21:41 → 5E 22:07
PROVIDERS: Emergency Medicine; Internal Medicine; Student in an Organized Health Care Education/Training Program; ADMIT Emergency Medicine
DX: E11.65 Type 2 diabetes mellitus with hyperglycemia (principal); E44.0 Moderate protein-calorie malnutrition; E87.2 Acidosis; I50.22 Chronic systolic (congestive) heart failure; I13.0 Hypertensive heart and chronic kidney disease with heart failure and stage 1 through stage 4 chronic kidney disease, or unspecified chronic kidney disease; R53.1 Weakness; J44.9 Chronic obstructive pulmonary disease, unspecified; M19.90 Unspecified osteoarthritis, unspecified site; K21.9 Gastro-esophageal reflux disease without esophagitis; E11.22 Type 2 diabetes mellitus with diabetic chronic kidney disease; N18.9 Chronic kidney disease, unspecified; E53.8 Deficiency of other specified B group vitamins; D53.9 Nutritional anemia, unspecified; G47.00 Insomnia, unspecified; G89.29 Other chronic pain; E03.9 Hypothyroidism, unspecified; E55.9 Vitamin D deficiency, unspecified; Z66 Do not resuscitate; Z51.5 Encounter for palliative care; F41.9 Anxiety disorder, unspecified; F32.9 Major depressive disorder, single episode, unspecified; E11.40 Type 2 diabetes mellitus with diabetic neuropathy, unspecified; E78.5 Hyperlipidemia, unspecified; E61.1 Iron deficiency; Z79.4 Long term (current) use of insulin; Z88.6 Allergy status to analgesic agent; Z87.440 Personal history of urinary (tract) infections; Z98.51 Tubal ligation status; Z90.710 Acquired absence of both cervix and uterus; Z87.891 Personal history of nicotine dependence; Z82.49 Family history of ischemic heart disease and other diseases of the circulatory system; Z83.3 Family history of diabetes mellitus; Z80.1 Family history of malignant neoplasm of trachea, bronchus and lung; Z80.3 Family history of malignant neoplasm of breast; Z79.899 Other long term (current) drug therapy; Z68.27 Body mass index [BMI] 27.0-27.9, adult

== ENCOUNTER → 2018-08-07 | Outpatient (CLI) | payer MEDICAID ==
[~2018-08-07] MED LIST changes: +APRESOLINE10 MG PO; +COREG12.5 M1 PO; +DOXYCYCLINE100 MG PO; +FUROSEMIDE20 M1 PO; +GLIPIZIDE10 M2 PO; +ISORDIL10 M1 PO; +OXYBUTYNIN CHLOR5 MG PO; +POTASSIUM CHLO10 ME4 PO; +PREDNISONE50 MG PO; +Percocet 325 MG1 TAB PO
[2018-08-07 14:28] LABS: BASO % 0.1 % (0.0-1.0); EOS % 0.1 % (1.0-4.0); HEMATOCRIT 35.4 % (37.0-47.0); HEMOGLOBIN 11.5 g/dl (12.0-16.0); LYMPH # 1.1 10*3/uL (1.3-4.4); LYMPH % 11.7 % (27.0-41.0); MEAN CELL VOLUME 98.1 fl (81.0-99.0); MEAN CORPUSCULAR HGB 31.9 pg (27.0-31.0); MEAN CORPUSCULAR HGB CONC 32.5 g/dl (33.0-37.0); MEAN PLATELET VOLUME 11.8 fl (9.6-12.3); MONO # 0.7 10*3/uL (0.1-1.0); MONO % 7.3 % (3.0-9.0); NEUT # 7.8 10*3/uL (2.3-7.9); NEUT % 80.4 % (47.0-73.0); PLATELET COUNT AUTOMATED 168 10*3/uL (130-400); RED BLOOD COUNT 3.61 10*6/uL (4.10-5.10); RED CELL DISTRI WIDTH 13.8 % (0-14.5); WHITE BLOOD COUNT 9.7 10*3/uL (4.8-10.8)
[2018-08-07 14:56] LABS: ALBUMIN 3.6 gm/dl (3.1-4.5); CREATININE 2.78 mg/dL (0.55-1.02); PHOSPHOROUS 3.7 mg/dL (2.5-4.9); POTASSIUM 4.7 mmol/L (3.5-5.1)
[2018-08-07 19:32] LABS: BILIRUBIN NEGATIVE (NEGATIVE); BLOOD 2+ (NEGATIVE); CLARITY SL CLOUDY (CLEAR); COLOR YELLOW (YELLOW); GLUCOSE 3+ (NEGATIVE); KETONE NEGATIVE (NEGATIVE); LEUKO ESTERASE 1+ (NEGATIVE); NITRITE NEGATIVE (NEGATIVE); UROBILINOGEN 0.2 E.U./dl (0.2-1.0)
[2018-08-07 19:39] LABS: BACTERIA 1+; EPITHELIAL CELLS 15-20; RBC 21-30 rbc/hpf (0-2); WBC 51-100 wbc/hpf (0-5)
== END | disposition home or self-care (01) ==
LOC: LAB 13:34
PROVIDERS: Internal Medicine Nephrology
DX: N17.9 Acute kidney failure, unspecified (principal)

== ENCOUNTER → 2018-09-12 | Outpatient (CLI) | payer MEDICAID ==
[~2018-09-12] MED LIST changes: +ALPRAZOLAM0.25 M2 PO; +FUROSEMIDE40 MG PO; +Humalog SQ; +ZOSYN 4.54.5 GM/100 IV
[2018-09-12 11:20] LABS: BILIRUBIN NEGATIVE (NEGATIVE); BLOOD TRACE-INTACT (NEGATIVE); CLARITY SL CLOUDY (CLEAR); COLOR YELLOW (YELLOW); GLUCOSE NEGATIVE (NEGATIVE); KETONE NEGATIVE (NEGATIVE); LEUKO ESTERASE 1+ (NEGATIVE); NITRITE NEGATIVE (NEGATIVE); PH 5.5 (5.0-9.0); UROBILINOGEN 0.2 E.U./dl (0.2-1.0)
[2018-09-12 11:28] LABS: BASO # 0.1 10*3/uL (0.0-0.1); EOS # 0.3 10*3/uL (0.0-0.4); EOS % 5.3 % (1.0-4.0); HEMATOCRIT 42.4 % (37.0-47.0); HEMOGLOBIN 13.1 g/dl (12.0-16.0); LYMPH # 1.5 10*3/uL (1.3-4.4); LYMPH % 30.6 % (27.0-41.0); MEAN CELL VOLUME 99.1 fl (81.0-99.0); MEAN CORPUSCULAR HGB 30.6 pg (27.0-31.0); MEAN CORPUSCULAR HGB CONC 30.9 g/dl (33.0-37.0); MEAN PLATELET VOLUME 11.5 fl (9.6-12.3); MONO # 0.4 10*3/uL (0.1-1.0); MONO % 8.8 % (3.0-9.0); NEUT # 2.6 10*3/uL (2.3-7.9); NEUT % 54.1 % (47.0-73.0); PLATELET COUNT AUTOMATED 164 10*3/uL (130-400); RED BLOOD COUNT 4.28 10*6/uL (4.10-5.10); RED CELL DISTRI WIDTH 13.4 % (0-14.5); WHITE BLOOD COUNT 4.9 10*3/uL (4.8-10.8)
[2018-09-12 11:29] LABS: URINE CREATININE RANDOM 86.3 mg/dL
[2018-09-12 11:49] LABS: ALBUMIN 3.5 gm/dl (3.1-4.5); CREATININE 2.66 mg/dL (0.55-1.02); PHOSPHOROUS 3.8 mg/dL (2.5-4.9); POTASSIUM 5.2 mmol/L (3.5-5.1)
[2018-09-12 12:40] LABS: BACTERIA 1+; RBC 0-2 rbc/hpf (0-2); WBC 41-50 wbc/hpf (0-5)
== END | disposition home or self-care (01) ==
LOC: LAB 10:41
PROVIDERS: Internal Medicine Nephrology
DX: E11.22 Type 2 diabetes mellitus with diabetic chronic kidney disease (principal); N18.3 Chronic kidney disease, stage 3 (moderate)

== ENCOUNTER 2018-11-06 08:37 | Emergency (ER) | payer MEDICAID ==
[~2018-11-06] VITALS: Wt 68.0 kg
--- NOTE | ~2018-11-06 | EKG ---
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
[~2018-11-06 08:37] MED LIST changes: -ALPRAZOLAM0.25 M2 PO; -DOXYCYCLINE100 MG PO; -FUROSEMIDE40 MG PO; -GLIPIZIDE10 M2 PO; -Humalog SQ; -ISORDIL10 M1 PO; -PREDNISONE50 MG PO; -ZOSYN 4.54.5 GM/100 IV
[2018-11-06 09:02] LABS: BASO % 0.6 % (0.0-1.0); EOS # 0.1 10*3/uL (0.0-0.4); EOS % 2.9 % (1.0-4.0); HEMATOCRIT 42.7 % (37.0-47.0); HEMOGLOBIN 13.2 g/dl (12.0-16.0); LYMPH # 1.1 10*3/uL (1.3-4.4); LYMPH % 22.2 % (27.0-41.0); MEAN CELL VOLUME 94.9 fl (81.0-99.0); MEAN CORPUSCULAR HGB 29.3 pg (27.0-31.0); MEAN CORPUSCULAR HGB CONC 30.9 g/dl (33.0-37.0); MEAN PLATELET VOLUME 11.9 fl (9.6-12.3); MONO # 0.5 10*3/uL (0.1-1.0); MONO % 10.9 % (3.0-9.0); NEUT # 3.1 10*3/uL (2.3-7.9); NEUT % 63.2 % (47.0-73.0); PLATELET COUNT AUTOMATED 129 10*3/uL (130-400); RED CELL DISTRI WIDTH 15.8 % (0-14.5); WHITE BLOOD COUNT 4.9 10*3/uL (4.8-10.8)
[2018-11-06 09:13] LABS: ACT PARTIAL THROMBO TIME 29.1 SECONDS (20.0-32.1); INTERNATIONAL NORM RATIO 1.1 (2.0-3.5)
[2018-11-06 09:19] LABS: ALBUMIN 3.5 gm/dl (3.1-4.5); ALKALINE PHOSPHATASE 246 U/L (45-117); BUN 50 mg/dl (7-24); CHLORIDE 108 mmol/L (98-107); CPK 31 U/L (26-192); CREATININE 2.35 mg/dL (0.55-1.02); POTASSIUM 4.2 mmol/L (3.5-5.1); SGOT/AST 39 IU/L (3-35); SGPT/ALT 26 U/L (12-78); SODIUM 140 mmol/L (136-145)
[2018-11-06 09:21] LABS: CKMB 1.4 ng/ml (0.5-3.6)
[2018-11-06 09:23] LABS: TROPONIN I < 0.015 ng/ml (<0.045)
[2018-11-06 09:58] LABS: BILIRUBIN NEGATIVE (NEGATIVE); BLOOD 3+ (NEGATIVE); CLARITY CLOUDY (CLEAR); COLOR YELLOW (YELLOW); GLUCOSE NEGATIVE (NEGATIVE); KETONE NEGATIVE (NEGATIVE); LEUKO ESTERASE 3+ (NEGATIVE); NITRITE NEGATIVE (NEGATIVE); PH 5.5 (5.0-9.0); UROBILINOGEN 0.2 E.U./dl (0.2-1.0)
[2018-11-06 10:23] LABS: BACTERIA 3+; RBC TNTC rbc/hpf (0-2); WBC TNTC wbc/hpf (0-5)
[2018-11-06 13:00] VITALS: BP 113/74
== END 2018-11-06 13:35 ==
LOC: ED 08:37
PROVIDERS: Emergency Medicine
DX: R41.82 Altered mental status, unspecified (principal); N39.0 Urinary tract infection, site not specified; R47.81 Slurred speech; G89.29 Other chronic pain; J44.9 Chronic obstructive pulmonary disease, unspecified; K21.9 Gastro-esophageal reflux disease without esophagitis; E03.9 Hypothyroidism, unspecified; I11.0 Hypertensive heart disease with heart failure; I50.9 Heart failure, unspecified; E11.40 Type 2 diabetes mellitus with diabetic neuropathy, unspecified; Z88.8 Allergy status to other drugs, medicaments and biological substances; Z79.899 Other long term (current) drug therapy; Z79.4 Long term (current) use of insulin; Z90.710 Acquired absence of both cervix and uterus; Z87.891 Personal history of nicotine dependence

== ENCOUNTER 2018-11-20 13:52 | Inpatient (IN) | payer MEDICAID ==
[~2018-11-20] VITALS: Ht 162.6 cm; Wt 73.6 kg
--- NOTE | ~2018-11-20 | EKG ---
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
--- NOTE | ~2018-11-20 | EKG ---
[place], [place] ELECTROCARDIOGRAM REPORT NAME: JESUS NORTH UNIT #: [id number] ROOM: 406 DOCTOR: JUANA DRAFT REPORT BIRTHDATE: [birth year] [facility] Test Date: 2018-11-20 Test Time: 16:07:42 Pat Name: JESUS NORTH Department: Room: 406 Gender: F Talent Coordinator: Beba Jones : 1950 Requested By: SHANNA ARRIETA Order Number: [id number] Reading MD: Junior Medina MD Measurements Intervals [place] Rate: 74 P: 100 FL: 287 QRS: -42 QRSD: 138 T: 148 QT: 458 QTc: 509 Interpretive Statements Atrial flutter with 3:1 AV block Left bundle branch block Electronically Signed On 11-21-2018 7:58:56 PDT by Junior Medina MD CM:EKGRPT:ELECTROCARDIOGRAM REPORT [id number] SHANNA SAMUELS DRAFT REPORT SHANNA ARRIETA DO
--- NOTE | ~2018-11-20 | EKG ---
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
[2018-11-20 13:55] VITALS: BP 134/64
[2018-11-20 14:19] LABS: BASO % 0.3 % (0.0-1.0); EOS # 0.2 10*3/uL (0.0-0.4); EOS % 3.3 % (1.0-4.0); HEMATOCRIT 47.8 % (37.0-47.0); HEMOGLOBIN 14.9 g/dl (12.0-16.0); LYMPH # 1.4 10*3/uL (1.3-4.4); LYMPH % 18.8 % (27.0-41.0); MEAN CELL VOLUME 93.9 fl (81.0-99.0); MEAN CORPUSCULAR HGB 29.3 pg (27.0-31.0); MEAN CORPUSCULAR HGB CONC 31.2 g/dl (33.0-37.0); MEAN PLATELET VOLUME 11.6 fl (9.6-12.3); MONO # 0.6 10*3/uL (0.1-1.0); MONO % 8.2 % (3.0-9.0); PLATELET COUNT AUTOMATED 206 10*3/uL (130-400); RED BLOOD COUNT 5.09 10*6/uL (4.10-5.10); RED CELL DISTRI WIDTH 18.8 % (0-14.5); WHITE BLOOD COUNT 7.3 10*3/uL (4.8-10.8)
[2018-11-20 14:29] LABS: ACT PARTIAL THROMBO TIME 27.3 SECONDS (20.0-32.1); INTERNATIONAL NORM RATIO 1.2 (2.0-3.5)
[2018-11-20 14:34] VITALS: BP 125/99
[2018-11-20 14:35] LABS: ALBUMIN 3.5 gm/dl (3.1-4.5); ALKALINE PHOSPHATASE 203 U/L (45-117); BUN 55 mg/dl (7-24); CHLORIDE 109 mmol/L (98-107); CREATININE 2.46 mg/dL (0.55-1.02); POTASSIUM 4.4 mmol/L (3.5-5.1); SGOT/AST 25 IU/L (3-35); SGPT/ALT 19 U/L (12-78); SODIUM 140 mmol/L (136-145); TOTAL PROTEIN 6.6 gm/dL (6.4-8.2)
[2018-11-20 14:45] LABS: TROPONIN I < 0.015 ng/ml (<0.045)
--- NOTE | 2018-11-20 15:26 | NUR ---
THE PT AMBULATED TO THE RESTROOM WITH A SLOW STEADY GAIT. HER PS02 AFTERWARDS WAS 95% ON ROOM AIR AND SHE ASKED THAT THE O2 BE LEFT OFF OF HER FOR WHILE. I TOLD HER I WOULD MONITOR IT AND IF IT GOES DOWN TO 90-92 WE WOULD PUT IT BACK ON
[2018-11-20 16:12] VITALS: BP 123/73
[2018-11-20 16:40] VITALS: BP 127/76
--- NOTE | 2018-11-20 16:40 | NUR ---
A 67, admitted to , under the services of DANY Yusuf DO with a diagnosis of COPD EXCERBATION. Chief complaint is SOB X 2 DAYS Patient arrived via STRETCHER from ER. Monitor applied. Initial assessment completed. Vital signs taken and recorded. DANY YUSUF DO notified of admission to the unit. Orders received. See assessment for past medical history, medications and allergies. Patient and/or family oriented to unit. [address] visitation policy reviewed. Clothing/patient valuable form completed. CORINNA COSME
--- NOTE | 2018-11-20 19:02 | NUR ---
MEDICATED WITH PO PERCOCET ORDERED PER PT REQUEST FOR C/O BACK PAIN RATED 5/10.
[2018-11-20 20:00] VITALS: BP 134/81
--- NOTE | 2018-11-20 20:00 | NUR ---
PT RESTING IN BED. RESP-EASY AND REGULAR. NO C/O AT HTIS TIME. NO SOB NOTED. CALL LIGHT IN REACH. SEE SHIFT ASSESSMENT.
--- NOTE | 2018-11-20 22:00 | NUR ---
PT TOLERATED ROUTINE MED WITH NO PROBLEM. BSG-243, SEE EMAR. NO C/O AT THIS TIME. CALL LIGHT IN REACH.,
--- NOTE | 2018-11-20 23:10 | NUR ---
ASSISTED TO BATHROOM AND BACK TO BED. RESP-EASY AND REGULAR. NO C/O AT THIS TIME. CALL LIGHT IN REACH.
[2018-11-21] VITALS: BP 131/71
--- NOTE | 2018-11-21 | NUR ---
SLEEPING IN BED, AWAKENS EASILY. NO C/O AT THIS TIME. CALL LIGHT IN REACH. SEE SHIFT ASSESSMENT.
--- NOTE | 2018-11-21 03:38 | NUR ---
24 HR chart check completed.
--- NOTE | 2018-11-21 04:00 | NUR ---
SLEEPING IN BED. RESP-EASY AND REGULAR. CALL LIGHT IN REACH.
--- NOTE | 2018-11-21 06:24 | NUR ---
RESTING IN BED. NO C/O AT THIS TIME. BSG-291 SEE EMAR. CALL LIGHT IN REACH.
[2018-11-21 06:38] LABS: HEMATOCRIT 43.9 % (37.0-47.0); HEMOGLOBIN 13.6 g/dl (12.0-16.0); MEAN CORPUSCULAR HGB 28.8 pg (27.0-31.0); MEAN PLATELET VOLUME 11.4 fl (9.6-12.3); PLATELET COUNT AUTOMATED 164 10*3/uL (130-400); RED BLOOD COUNT 4.72 10*6/uL (4.10-5.10); RED CELL DISTRI WIDTH 18.4 % (0-14.5); WHITE BLOOD COUNT 3.5 10*3/uL (4.8-10.8)
[2018-11-21 07:09] LABS: POTASSIUM 4.6 mmol/L (3.5-5.1)
--- NOTE | 2018-11-21 07:17 | NUR ---
MEDICATED WITH PRN PERCOCET FOR C/O BACK PAIN RATED AT 5 OUT OF 10.
[2018-11-21 07:20] LABS: ALBUMIN 3.3 gm/dl (3.1-4.5); CREATININE 2.28 mg/dL (0.55-1.02); FREE T4 0.94 ng/dl (0.76-1.46); PHOSPHOROUS 3.6 mg/dL (2.5-4.9); TOTAL PROTEIN 6.5 gm/dL (6.4-8.2)
[2018-11-21 07:21] LABS: THYROID STIM HORMONE (HS) 21.4 uIU/ml (0.358-4.75)
[2018-11-21 07:25] LABS: PLATELET SUFFICIENCY NORMAL (NORMAL); TOTAL CELLS COUNTED 100 #CELLS
[2018-11-21 08:00] VITALS: BP 126/88
[2018-11-21 08:46] LABS: VITAMIN D, 25-HYDROXY 48.4 ng/mL (30-100)
--- NOTE | 2018-11-21 09:00 | NUR ---
Inspector Outside Production in to talk to patient. Patient states lives at home with alone. There are few steps in the home. Physician: janet dahl [facility]: [facility] Patient's level of ADLs: INDEPENDENT Patient has working utilities: all working DME: home oxygen, portable tanks, nebulizer, doesn't remember the name of the company Follow-up physician's appointment after d/c: will be made by hospitalist nurse director upon discharge Does patient want to access PORTAL?: no Discharge plan discussed with patient, patient lives at home alone, she is independent in adls and ambulation, she states she has [employer] services with an aid that helps her with cleaning, discussed with her VNA and she was receptive to this given choice of companies, she chose [employer], will notify [facility] when patient is medically stable for discharge. FREEDOM DEL CASTILLO
[2018-11-21] MEDS ORDERED: DOXYCYCLINE100 MG PO (10:37)
[2018-11-21] MEDS ORDERED: PREDNISONE50 MG PO (10:37)
[2018-11-21] MEDS ORDERED: MUCINEX ER600 MG PO (10:37)
--- NOTE | 2018-11-21 11:23 | NUR ---
case management contacted [facility] and informed them that patient is being discharged to home today
--- NOTE | 2018-11-21 11:50 | NUR ---
PATIENT TO BE DISCHARGED TO HOME, FAMILY AND PATIENT DO NOT WANT TO LEAVE UNTIL SHE GETS A SCRIPT FOR PAIN MED. DR. COLEMAN AWARE.
--- NOTE | 2018-11-21 12:57 | NUR ---
PATIENT DISCHARGED TO HOME.
[2018-11-23] MEDS ORDERED: ZOLPIDEM TART10 MG PO (19:41)
[2018-11-23] MEDS ORDERED: ISORDIL10 M1 PO (19:44)
[2018-11-23] MEDS ORDERED: APRESOLINE10 MG PO (19:47)
[2018-11-23] MEDS ORDERED: GLIPIZIDE10 M2 PO (19:49)
[2018-11-30] MEDS ORDERED: ZOSYN 4.54.5 GM/100 IV (14:03)
[2018-11-30] MEDS ORDERED: ZOLPIDEM TART10 MG PO (14:03)
[2018-11-30] MEDS ORDERED: Humalog SQ (14:03)
[2018-11-30] MEDS ORDERED: ALPRAZOLAM0.25 M2 PO (14:03)
[2018-11-30] MEDS ORDERED: FUROSEMIDE40 MG PO (14:03)
== END 2018-11-21 12:57 | disposition home health service (06) | DRG 191 ==
LOC: ED 13:52 → EDHOLD 15:36 → 4E 15:36
PROVIDERS: Emergency Medicine; Internal Medicine; ADMIT Internal Medicine
DX: J44.1 Chronic obstructive pulmonary disease with (acute) exacerbation (principal); I13.0 Hypertensive heart and chronic kidney disease with heart failure and stage 1 through stage 4 chronic kidney disease, or unspecified chronic kidney disease; N18.4 Chronic kidney disease, stage 4 (severe); E44.1 Mild protein-calorie malnutrition; J96.11 Chronic respiratory failure with hypoxia; I50.22 Chronic systolic (congestive) heart failure; E83.41 Hypermagnesemia; E11.22 Type 2 diabetes mellitus with diabetic chronic kidney disease; E11.65 Type 2 diabetes mellitus with hyperglycemia; E87.8 Other disorders of electrolyte and fluid balance, not elsewhere classified; I48.91 Unspecified atrial fibrillation; M19.90 Unspecified osteoarthritis, unspecified site; F41.9 Anxiety disorder, unspecified; J45.909 Unspecified asthma, uncomplicated; G89.29 Other chronic pain; K21.9 Gastro-esophageal reflux disease without esophagitis; E78.5 Hyperlipidemia, unspecified; E03.9 Hypothyroidism, unspecified; G47.00 Insomnia, unspecified; F32.5 Major depressive disorder, single episode, in full remission; E11.40 Type 2 diabetes mellitus with diabetic neuropathy, unspecified; E53.8 Deficiency of other specified B group vitamins; D72.810 Lymphocytopenia; Z66 Do not resuscitate; Z51.5 Encounter for palliative care; Z90.89 Acquired absence of other organs; Z90.710 Acquired absence of both cervix and uterus; Z98.51 Tubal ligation status; Z87.891 Personal history of nicotine dependence; Z82.49 Family history of ischemic heart disease and other diseases of the circulatory system; Z83.3 Family history of diabetes mellitus; Z80.1 Family history of malignant neoplasm of trachea, bronchus and lung; Z88.8 Allergy status to other drugs, medicaments and biological substances; Z79.899 Other long term (current) drug therapy; Z79.4 Long term (current) use of insulin; Z99.81 Dependence on supplemental oxygen; Z68.27 Body mass index [BMI] 27.0-27.9, adult

== ENCOUNTER → 2019-01-28 | Outpatient (CLI) | payer MEDICAID ==
[~2019-01-28] MED LIST changes: +ALPRAZOLAM0.25 M2 PO; +DOXYCYCLINE100 MG PO; +FUROSEMIDE40 MG PO; +GLIPIZIDE10 M2 PO; +Humalog SQ; +ISORDIL10 M1 PO; +PREDNISONE50 MG PO; +ZOSYN 4.54.5 GM/100 IV
== END | disposition home or self-care (01) ==
LOC: RAD 11:53
DX: M54.5 Low back pain (principal); M96.1 Postlaminectomy syndrome, not elsewhere classified; R10.9 Unspecified abdominal pain

== ENCOUNTER 2019-02-24 23:17 | Emergency (ER) | payer MEDICAID ==
[~2019-02-24] VITALS: Ht 172.7 cm; Wt 59.0 kg
[2019-02-24 23:57] LABS: BASO % 0.2 % (0.0-1.0); EOS # 0.1 10*3/uL (0.0-0.4); EOS % 2.1 % (1.0-4.0); HEMATOCRIT 40.7 % (37.0-47.0); HEMOGLOBIN 13.1 g/dl (12.0-16.0); LYMPH # 1.1 10*3/uL (1.3-4.4); LYMPH % 20.1 % (27.0-41.0); MEAN CELL VOLUME 97.4 fl (81.0-99.0); MEAN CORPUSCULAR HGB 31.3 pg (27.0-31.0); MEAN CORPUSCULAR HGB CONC 32.2 g/dl (33.0-37.0); MEAN PLATELET VOLUME 10.9 fl (9.6-12.3); MONO # 0.3 10*3/uL (0.1-1.0); MONO % 6.3 % (3.0-9.0); NEUT # 3.7 10*3/uL (2.3-7.9); NEUT % 70.9 % (47.0-73.0); PLATELET COUNT AUTOMATED 151 10*3/uL (130-400); RED BLOOD COUNT 4.18 10*6/uL (4.10-5.10); RED CELL DISTRI WIDTH 16.8 % (0-14.5); WHITE BLOOD COUNT 5.2 10*3/uL (4.8-10.8)
[2019-02-25 00:06] LABS: INTERNATIONAL NORM RATIO 1.1 (2.0-3.5)
[2019-02-25 00:07] LABS: BILIRUBIN NEGATIVE (NEGATIVE); BLOOD TRACE-INTACT (NEGATIVE); CLARITY SL CLOUDY (CLEAR); COLOR YELLOW (YELLOW); GLUCOSE NEGATIVE (NEGATIVE); KETONE NEGATIVE (NEGATIVE); LEUKO ESTERASE 2+ (NEGATIVE); NITRITE NEGATIVE (NEGATIVE); PH 5.5 (5.0-9.0); UROBILINOGEN 0.2 E.U./dl (0.2-1.0)
[2019-02-25 00:13] LABS: ALBUMIN 3.1 gm/dl (3.1-4.5); ALKALINE PHOSPHATASE 105 U/L (45-117); BUN 54 mg/dl (7-24); CHLORIDE 106 mmol/L (98-107); CREATININE 2.77 mg/dL (0.55-1.02); POTASSIUM 4.5 mmol/L (3.5-5.1); SGOT/AST 35 IU/L (3-35); SGPT/ALT 29 U/L (12-78); SODIUM 137 mmol/L (136-145); TOTAL PROTEIN 6.4 gm/dL (6.4-8.2); TROPONIN I 0.027 ng/ml (<0.045)
[2019-02-25 00:15] LABS: BACTERIA 1+; WBC 51-100 wbc/hpf (0-5)
[2019-02-25 00:16] LABS: YEAST 1+
[2019-02-25 00:17] LABS: URINE AMPHETAMINES < 1000 (1000ng/ml); URINE BARBITURATES < 200 (200ng/ml); URINE BENZODIAZEPINES < 200 (200ng/ml); URINE CANNABINOIDS (THC) < 50 (50ng/ml); URINE COCAINE < 300 (300ng/ml); URINE METHADONE < 300 (300ng/ml); URINE OPIATES < 300 (300ng/ml)
[2019-02-25 00:25] LABS: ETHYL ALCOHOL < 3.0 mg/dl (<3)
[2019-02-25 00:26] LABS: URINE PHENCYCLIDINE < 25 (25ng/ml)
[2019-02-25 04:06] VITALS: BP 120/98
== END 2019-02-25 04:43 | disposition short-term general hospital (02) ==
LOC: ED 23:17
PROVIDERS: Emergency Medicine
DX: E11.649 Type 2 diabetes mellitus with hypoglycemia without coma (principal); R41.82 Altered mental status, unspecified; I48.91 Unspecified atrial fibrillation; M19.90 Unspecified osteoarthritis, unspecified site; J44.9 Chronic obstructive pulmonary disease, unspecified; K21.9 Gastro-esophageal reflux disease without esophagitis; E78.5 Hyperlipidemia, unspecified; E03.9 Hypothyroidism, unspecified; E11.42 Type 2 diabetes mellitus with diabetic polyneuropathy; I13.0 Hypertensive heart and chronic kidney disease with heart failure and stage 1 through stage 4 chronic kidney disease, or unspecified chronic kidney disease; I50.9 Heart failure, unspecified; E11.22 Type 2 diabetes mellitus with diabetic chronic kidney disease; N18.4 Chronic kidney disease, stage 4 (severe); Z79.4 Long term (current) use of insulin; Z88.6 Allergy status to analgesic agent; Z79.899 Other long term (current) drug therapy; Z87.891 Personal history of nicotine dependence

== ENCOUNTER 2019-04-09 05:29 | Inpatient (IN) | payer MEDICAID ==
[2019-04-09] VITALS (7 sets, daily range): BP systolic 115–155; BP diastolic 61–77
[~2019-04-09] VITALS: Ht 162.5 cm; Wt 65.6 kg
[2019-04-09 06:07] LABS: BASO # 0.1 10*3/uL (0.0-0.1); BASO % 0.7 % (0.0-1.0); EOS # 0.3 10*3/uL (0.0-0.4); EOS % 3.8 % (1.0-4.0); HEMATOCRIT 34.5 % (37.0-47.0); HEMOGLOBIN 10.6 g/dl (12.0-16.0); LYMPH # 1.1 10*3/uL (1.3-4.4); LYMPH % 13.9 % (27.0-41.0); MEAN CELL VOLUME 102.7 fl (81.0-99.0); MEAN CORPUSCULAR HGB 31.5 pg (27.0-31.0); MEAN CORPUSCULAR HGB CONC 30.7 g/dl (33.0-37.0); MEAN PLATELET VOLUME 10.7 fl (9.6-12.3); MONO # 0.6 10*3/uL (0.1-1.0); MONO % 8.2 % (3.0-9.0); NEUT # 5.5 10*3/uL (2.3-7.9); NEUT % 72.3 % (47.0-73.0); PLATELET COUNT AUTOMATED 154 10*3/uL (130-400); RED BLOOD COUNT 3.36 10*6/uL (4.10-5.10); RED CELL DISTRI WIDTH 14.4 % (0-14.5); WHITE BLOOD COUNT 7.6 10*3/uL (4.8-10.8)
[2019-04-09 06:23] LABS: ALBUMIN 3.3 gm/dl (3.1-4.5); CREATININE 3.04 mg/dL (0.55-1.02); POTASSIUM 4.9 mmol/L (3.5-5.1); TOTAL PROTEIN 7.2 gm/dL (6.4-8.2)
[2019-04-09 06:28] LABS: BILIRUBIN NEGATIVE (NEGATIVE); BLOOD 1+ (NEGATIVE); CLARITY CLOUDY (CLEAR); COLOR YELLOW (YELLOW); GLUCOSE NEGATIVE (NEGATIVE); KETONE NEGATIVE (NEGATIVE); LEUKO ESTERASE 1+ (NEGATIVE); NITRITE NEGATIVE (NEGATIVE); PH 6.5 (5.0-9.0); SPECIFIC GRAVITY 1.015 (1.005-1.030); UROBILINOGEN 0.2 E.U./dl (0.2-1.0)
[2019-04-09 06:47] LABS: BACTERIA 3+; RBC 21-30 rbc/hpf (0-2); WBC 41-50 wbc/hpf (0-5)
--- NOTE | 2019-04-09 08:40 | NUR ---
A 68, admitted to , under the services of DANY Yusuf DO with a diagnosis of UTI AND HYPOGLYCEMIA. Chief complaint is HYPOGLYCEMIA. Patient arrived via bed from ER. Monitor applied. Initial assessment completed. Vital signs taken and recorded. DANY YUSUF DO notified of admission to the unit. Orders received. See assessment for past medical history, medications and allergies. Patient and/or family oriented to unit. [facility] visitation policy reviewed. Clothing/patient valuable form completed. CANDACE CLARK
--- NOTE | 2019-04-09 11:20 | NUR ---
PALLIATIVE CARE CONSULT CALLED TO BEREKET RUFF. [employer] STATES THAT [employer] INTERN WILL SEE PATIENT ON THE DUE TO THE HOLIDAY FALLING ON A MONDAY. [employer] O[employer]ATOR STATES THAT THEY WILL CALL TO ENSURE PT IS STILL HOSPITALIZED AND IF NOT, THEY CAN SEE PT IN THE COMMUNITY.
--- NOTE | 2019-04-09 11:23 | NUR ---
Palliative order faxed.
--- NOTE | 2019-04-09 11:43 | NUR ---
[facility] NOTIFIED FOR LIST OF MEDICATIONS AND STATES THAT THEY WILL FAX LIST TO OUR FAX MACHINE.
[2019-04-09] MEDS ORDERED: LANTUS SOL100 UNIT/1 SQ (15:25)
--- NOTE | 2019-04-09 18:19 | NUR ---
DR JUSTIN NOTIFIED THAT PT MED REC IS UPDATED AT THIS TIME.
[2019-04-10] VITALS: BP 125/62
[2019-04-10 07:04] LABS: CREATININE 2.62 mg/dL (0.55-1.02); PHOSPHOROUS 4.4 mg/dL (2.5-4.9); POTASSIUM 4.8 mmol/L (3.5-5.1)
[2019-04-10 08:00] VITALS: BP 128/68
--- NOTE | 2019-04-10 11:20 | NUR ---
Discharge instructions reviewed with patient/sister. Patient receptive and verbalizes understanding. Follow-up care arranged. Written instructions given to patient/sister. LINA MI
--- NOTE | 2019-04-10 11:26 | NUR ---
Pt dc in care of sister via wheelchair.
== END 2019-04-10 11:43 | disposition home or self-care (01) | DRG 420 ==
LOC: ED 05:29 → 5E 08:11
PROVIDERS: Emergency Medicine; Student in an Organized Health Care Education/Training Program; ADMIT Internal Medicine
DX: E11.649 Type 2 diabetes mellitus with hypoglycemia without coma (principal); N17.0 Acute kidney failure with tubular necrosis; N18.4 Chronic kidney disease, stage 4 (severe); E44.1 Mild protein-calorie malnutrition; I13.0 Hypertensive heart and chronic kidney disease with heart failure and stage 1 through stage 4 chronic kidney disease, or unspecified chronic kidney disease; N39.0 Urinary tract infection, site not specified; I50.9 Heart failure, unspecified; I48.0 Paroxysmal atrial fibrillation; J44.9 Chronic obstructive pulmonary disease, unspecified; E03.9 Hypothyroidism, unspecified; D53.9 Nutritional anemia, unspecified; E87.8 Other disorders of electrolyte and fluid balance, not elsewhere classified; F32.9 Major depressive disorder, single episode, unspecified; E78.5 Hyperlipidemia, unspecified; E11.42 Type 2 diabetes mellitus with diabetic polyneuropathy; E55.9 Vitamin D deficiency, unspecified; F41.9 Anxiety disorder, unspecified; G89.29 Other chronic pain; E11.22 Type 2 diabetes mellitus with diabetic chronic kidney disease; Z88.6 Allergy status to analgesic agent; Z90.710 Acquired absence of both cervix and uterus; Z83.3 Family history of diabetes mellitus; Z80.1 Family history of malignant neoplasm of trachea, bronchus and lung; Z82.49 Family history of ischemic heart disease and other diseases of the circulatory system; Z79.899 Other long term (current) drug therapy; Z79.4 Long term (current) use of insulin; Z68.24 Body mass index [BMI] 24.0-24.9, adult; Z99.81 Dependence on supplemental oxygen

== ENCOUNTER 2019-04-16 09:45 | Inpatient (IN) | payer MEDICAID ==
[~2019-04-16] VITALS: Ht 162.6 cm; Wt 72.7 kg
[2019-04-16 09:53] VITALS: BP 145/73
[2019-04-16 10:15] LABS: BASO # 0.1 10*3/uL (0.0-0.1); EOS # 0.1 10*3/uL (0.0-0.4); EOS % 2.8 % (1.0-4.0); HEMATOCRIT 33.3 % (37.0-47.0); HEMOGLOBIN 10.2 g/dl (12.0-16.0); LYMPH # 0.9 10*3/uL (1.3-4.4); LYMPH % 17.6 % (27.0-41.0); MEAN CELL VOLUME 104.1 fl (81.0-99.0); MEAN CORPUSCULAR HGB 31.9 pg (27.0-31.0); MEAN CORPUSCULAR HGB CONC 30.6 g/dl (33.0-37.0); MEAN PLATELET VOLUME 11.2 fl (9.6-12.3); MONO # 0.4 10*3/uL (0.1-1.0); NEUT # 3.6 10*3/uL (2.3-7.9); NEUT % 71.4 % (47.0-73.0); PLATELET COUNT AUTOMATED 176 10*3/uL (130-400); RED CELL DISTRI WIDTH 14.9 % (0-14.5)
[2019-04-16 10:38] LABS: CREATININE 2.64 mg/dL (0.55-1.02); POTASSIUM 4.5 mmol/L (3.5-5.1)
[2019-04-16 11:40] LABS: BILIRUBIN NEGATIVE (NEGATIVE); BLOOD 2+ (NEGATIVE); CLARITY SL CLOUDY (CLEAR); COLOR YELLOW (YELLOW); GLUCOSE NEGATIVE (NEGATIVE); KETONE NEGATIVE (NEGATIVE); LEUKO ESTERASE 2+ (NEGATIVE); NITRITE NEGATIVE (NEGATIVE); SPECIFIC GRAVITY 1.025 (1.005-1.030); UROBILINOGEN 0.2 E.U./dl (0.2-1.0)
[2019-04-16 11:58] LABS: WBC TNTC wbc/hpf (0-5)
[2019-04-16 12:21] VITALS: BP 143/69
[2019-04-16 13:35] VITALS: BP 150/94
[2019-04-16 16:00] VITALS: BP 138/84
[2019-04-16 20:00] VITALS: BP 140/91
[2019-04-16 20:15] VITALS: BP 122/86
[2019-04-17] VITALS: BP 136/72
[2019-04-17 06:39] LABS: ALBUMIN 2.6 gm/dl (3.1-4.5); CREATININE 2.59 mg/dL (0.55-1.02); PHOSPHOROUS 3.7 mg/dL (2.5-4.9); POTASSIUM 4.5 mmol/L (3.5-5.1); TOTAL PROTEIN 5.9 gm/dL (6.4-8.2)
[2019-04-17 07:13] LABS: INTERNATIONAL NORM RATIO 1.3 (2.0-3.5)
[2019-04-17 07:47] LABS: BASO % 0.6 % (0.0-1.0); EOS # 0.3 10*3/uL (0.0-0.4); EOS % 5.5 % (1.0-4.0); HEMATOCRIT 28.8 % (37.0-47.0); HEMOGLOBIN 9.2 g/dl (12.0-16.0); LYMPH # 1.2 10*3/uL (1.3-4.4); LYMPH % 24.7 % (27.0-41.0); MEAN CELL VOLUME 101.8 fl (81.0-99.0); MEAN CORPUSCULAR HGB 32.5 pg (27.0-31.0); MEAN CORPUSCULAR HGB CONC 31.9 g/dl (33.0-37.0); MEAN PLATELET VOLUME 11.8 fl (9.6-12.3); MONO # 0.4 10*3/uL (0.1-1.0); MONO % 8.7 % (3.0-9.0); NEUT % 60.3 % (47.0-73.0); PLATELET COUNT AUTOMATED 154 10*3/uL (130-400); RED BLOOD COUNT 2.83 10*6/uL (4.10-5.10); WHITE BLOOD COUNT 4.9 10*3/uL (4.8-10.8)
[2019-04-17 08:00] VITALS: BP 139/68
[2019-04-17 08:24] LABS: VITAMIN D, 25-HYDROXY 32.3 ng/mL (30-100)
[2019-04-17 12:00] VITALS: BP 131/62
[2019-04-17 16:00] VITALS: BP 134/63
== END 2019-04-17 19:00 | disposition home or self-care (01) | DRG 52 ==
LOC: ED 09:45 → 5E 11:47 → EDHOLD 11:47 → 5E 12:18
PROVIDERS: Emergency Medicine; Student in an Organized Health Care Education/Training Program; ADMIT Family Medicine
DX: G93.41 Metabolic encephalopathy (principal); E43 Unspecified severe protein-calorie malnutrition; E11.649 Type 2 diabetes mellitus with hypoglycemia without coma; I13.0 Hypertensive heart and chronic kidney disease with heart failure and stage 1 through stage 4 chronic kidney disease, or unspecified chronic kidney disease; I48.20 Chronic atrial fibrillation, unspecified; R62.7 Adult failure to thrive; I50.9 Heart failure, unspecified; N18.4 Chronic kidney disease, stage 4 (severe); E11.22 Type 2 diabetes mellitus with diabetic chronic kidney disease; E11.42 Type 2 diabetes mellitus with diabetic polyneuropathy; N39.0 Urinary tract infection, site not specified; D53.9 Nutritional anemia, unspecified; F41.9 Anxiety disorder, unspecified; G89.29 Other chronic pain; E53.8 Deficiency of other specified B group vitamins; E55.9 Vitamin D deficiency, unspecified; F32.9 Major depressive disorder, single episode, unspecified; K21.9 Gastro-esophageal reflux disease without esophagitis; M19.90 Unspecified osteoarthritis, unspecified site; J44.9 Chronic obstructive pulmonary disease, unspecified; Z66 Do not resuscitate; Z51.5 Encounter for palliative care; Z68.27 Body mass index [BMI] 27.0-27.9, adult; Z91.14 Patient's other noncompliance with medication regimen; Z88.6 Allergy status to analgesic agent; Z90.710 Acquired absence of both cervix and uterus; Z98.51 Tubal ligation status; Z87.891 Personal history of nicotine dependence; Z83.3 Family history of diabetes mellitus; Z80.1 Family history of malignant neoplasm of trachea, bronchus and lung; Z82.49 Family history of ischemic heart disease and other diseases of the circulatory system; Z79.899 Other long term (current) drug therapy; Z79.4 Long term (current) use of insulin

== ENCOUNTER → 2019-05-25 | Outpatient (CLI) | payer MEDICAID ==
[2019-05-25 11:52] LABS: BASO % 0.8 % (0.0-1.0); EOS # 0.2 10*3/uL (0.0-0.4); EOS % 3.5 % (1.0-4.0); HEMATOCRIT 41.2 % (37.0-47.0); HEMOGLOBIN 12.6 g/dl (12.0-16.0); LYMPH # 0.8 10*3/uL (1.3-4.4); LYMPH % 15.3 % (27.0-41.0); MEAN CELL VOLUME 100.5 fl (81.0-99.0); MEAN CORPUSCULAR HGB 30.7 pg (27.0-31.0); MEAN CORPUSCULAR HGB CONC 30.6 g/dl (33.0-37.0); MEAN PLATELET VOLUME 12.2 fl (9.6-12.3); MONO # 0.4 10*3/uL (0.1-1.0); MONO % 7.9 % (3.0-9.0); NEUT # 3.8 10*3/uL (2.3-7.9); NEUT % 72.3 % (47.0-73.0); PLATELET COUNT AUTOMATED 138 10*3/uL (130-400); WHITE BLOOD COUNT 5.2 10*3/uL (4.8-10.8)
[2019-05-25 12:03] LABS: ALBUMIN 3.4 gm/dl (3.1-4.5); CREATININE 2.95 mg/dL (0.55-1.02); PHOSPHOROUS 2.6 mg/dL (2.5-4.9); POTASSIUM 4.3 mmol/L (3.5-5.1)
[2019-05-26 12:57] LABS: BILIRUBIN NEGATIVE (NEGATIVE); BLOOD 3+ (NEGATIVE); CLARITY CLOUDY (CLEAR); COLOR YELLOW (YELLOW); GLUCOSE NEGATIVE (NEGATIVE); KETONE NEGATIVE (NEGATIVE)
[2019-05-26 12:58] LABS: BACTERIA 4+; LEUKO ESTERASE 2+ (NEGATIVE); NITRITE NEGATIVE (NEGATIVE); RBC TNTC rbc/hpf (0-2); UROBILINOGEN 0.2 E.U./dl (0.2-1.0); WBC TNTC wbc/hpf (0-5)
== END | disposition home or self-care (01) ==
LOC: LAB 11:15
PROVIDERS: Internal Medicine Nephrology
DX: E11.319 Type 2 diabetes mellitus with unspecified diabetic retinopathy without macular edema (principal); N18.4 Chronic kidney disease, stage 4 (severe)